=== PATIENT | female | born 1960 | race Caucasian/White ===

== ENCOUNTER 2017-01-14 14:39 | Inpatient (IN) | payer MEDICARE ==
[~2017-01-14] VITALS: Ht 170.1 cm; Wt 114.1 kg
--- NOTE | ~2017-01-14 | PR ---
[place], [place] PROGRESS NOTE NAME: NURYS BOYCE [facility] #: [id number] UNIT #: [id number] ROOM: 401 DOCTOR: EMMANUEL ARELLANO MD BIRTHDATE: [birth year] DOS: 01/19/2017 SUBJECTIVE: The patient is doing fine. She is much better with the steroids. She is able to move and walk now. Her joint pain, myalgias, and arthralgias have improved. OBJECTIVE: VITAL SIGNS: Graphic trend shows a pressure of 135/69, respirations 20, pulse is 72, temperature 97.4, T-max of 100.4 yesterday. LUNGS: Diminished breath sounds, clear. HEART: Regular. ABDOMEN: Obese, soft, nontender. EXTREMITIES: Without any edema. LABORATORY DATA: Mycoplasma pneumoniae has come back positive, but the IgM is less than 770. ASSESSMENT AND PLAN: 1. The patient with fever of unknown origin, most likely from an inflammatory process rather than infectious process. Blood cultures have come back negative. Mycoplasma pneumoniae is positive, we will discuss with Dr. Nicholson. 2. Because of the patient's continued fever and difficulty in diagnosing was transferred to [facility], unfortunately there were no beds and the patient is still there. 3. Benign hypertension, controlled. EMMANUEL ARELLANO MD CM:PNTRANS [id number] EMMANUEL ARELLANO MD 01/19/17 1044 interface
--- NOTE | ~2017-01-14 | PR ---
[place], [place] PROGRESS NOTE NAME: NURYS BOYCE UNIT #: [id number] ROOM: 401 DOCTOR: PAMELA UMANA MD BIRTHDATE: [birth year] DOS: 01/19/2017 SUBJECTIVE: She has noticed significant reduction and improvement in respiratory complaints. The patient has myalgia and the arthritis pain ____ with the use of the IV Solu-Medrol ____. She has been currently waiting for bed for transfer to [facility]. OBJECTIVE: VITAL SIGNS: Shows the temperature noted as 100.4 degrees Fahrenheit, normal temperature, respiratory rate 20, heart rate 64, blood pressure 141/77. Pulse oxygen saturation on room air 98% saturation recorded. HEENT: Chronic obesity. NECK: Supple. CARDIOVASCULAR SYSTEM: S1, S2 audible. LUNGS: For the patient was noted without any wheezing or crackles at the present time. ABDOMEN: Soft, nontender. LABORATORY DATA: The respiratory viral panel of the patient was noted negative. Procalcitonin level done on the 01/16/2017 was noted mildly elevated at 0.09. Mycoplasma IgM were noted negative, IgG was mildly elevated consistent with a previous old infection. The vancomycin trough level today was noted therapeutic 17.5. Anti-Marylou-1 antibodies were negative. IMPRESSION: The patient with rheumatic symptom for this patient, which has been noted with pulmonary nodule. The patient's infectious etiology and other etiologies of the patient currently has been considered and required further assessment. PLAN OF TREATMENT: Continue current plan and management as in progress. No other change in treatment at this time immediately will be necessary. Treatment changes will be ordered for this patient based on the progression of the illness. [place], [place] PROGRESS NOTE NAME: NURYS BOYCE UNIT #: [id number] ROOM: 401 DOCTOR: PAMELA UMANA MD BIRTHDATE: [birth year] PAMELA BYRNES MD CM:PNTRANS [id number] PAMELA JORGENSEN MD 01/20/17 0456 interface
--- NOTE | ~2017-01-14 | PR ---
[place], [place] PROGRESS NOTE NAME: NURYS BOYCE [facility] #: [id number] UNIT #: [id number] ROOM: 401 DOCTOR: FITZ JORGENSEN MD,PAMELA BIRTHDATE: [birth year] DOS: 01/18/2017 SUBJECTIVE: She has been complaining of weakness of the upper extremities and also pain in the left knee as well. The patient has x-rays of the left knee completed yesterday as well, which shows a small effusion the patient without any acute fracture. Venous Dopplers of the both lower extremities was also completed does not show any evidence of deep venous thrombosis. She has been noted fevers the patient again at midnight and yesterday afternoon after being afebrile for at least 24 hours. She was continued on the antibiotics. OBJECTIVE: VITAL SIGNS: Blood pressure 149/56-140/80, respirations 20-22, heart rate 95-80, temperature 101.5-98.3 degrees Fahrenheit. HEENT: Mild to moderate obesity. NECK: Supple. CARDIOVASCULAR SYSTEM: S1, S2 audible. LUNGS: Noted without any wheezing or crackles. ABDOMEN: Soft, nontender. Bowel sounds present. LABORATORY DATA: CPK of the patient that was done this morning was normal. The blood culture of the patient from the showed no bacterial growth. The vancomycin trough level was 10.5, which is in the low therapeutic range. X-ray of the left knee of the patient described as small effusion without a fracture. Ultrasound of the bilateral lower extremity does not show any evidence of acute deep venous thrombosis of the bilateral lower extremities. IMPRESSION: 1. The patient with the patient was noted with significant inflammatory burden for the patient in the body with abnormal finding on CT scan of the chest for the patient with tree-in-bud appearance 2. Chronic obesity. 3. Muscular weakness of the patient with unclear etiology, vasculitis. The patient has been considered being assessed with the pending lab results as well. PLAN OF TREATMENT: The patient will be recommended for transfer to tertiary care facility for further assessment and comprehensive workup. The patient ongoing medical problems to be diagnosed effectively and we treated accordingly. The possible transfer of patient to another facility was discussed with the patient and the spouse in detail. The case was also discussed with discharge planning and patient transferred with Dr. Danae Hoffmann and the case management services. The patient most likely will be transferred to one of the hospital at [facility] based on her insurance coverage today for further assessment. A thought was to start the patient on corticosteroid for the patient to reduce the inflammatory burden of the body for this patient that will be placed on hold. Since the patient would like to be assessed first to find out the problem prior to making any other empirical changes in the medical management. [place], [place] PROGRESS NOTE NAME: NURYS BOYCE UNIT #: [id number] ROOM: [facility] DOCTOR: PAMELA UMANA MD BIRTHDATE: [birth year] PAMELA BYRNES MD CM:PNTRANS [phone] PAMELA JORGENSEN MD 01/18/17 1256 interface
--- NOTE | ~2017-01-14 | CON ---
[place], [place] REPORT OF CONSULTATION NAME: NURYS BOYCE [facility] #: [id number] UNIT #: [id number] ROOM: 401 DOCTOR: FITZ JORGENSEN MDPAMELA BIRTHDATE: [birth year] DOS: 01/16/2017 PULMONARY CONSULTATION EVALUATION AND MANAGEMENT CONSULTATION REQUESTED BY: Dr. Danae Hoffmann. REASON FOR CONSULTATION: To assess the patient for any respiratory-related illness of the patient with recurrent febrile illness. HISTORY OF PRESENT ILLNESS: This is a 57-year-old female who has been unknown to me from the past. The patient developed symptoms of acute urinary tract infection of the patient a few weeks ago, which has been treated with antibiotic with ciprofloxacin by the primary care attending. She has been noted with symptoms of pain and aches in the body including in the joints and in the right shoulder. She was seen by her neurologist. She was also seen in the emergency room at [facility] previously and has been prescribed for this patient as prednisone treatment at that time. The patient was given prednisone 60 mg daily for 3 days. The patient stated that she was visiting grocery store where she passed out. She has been brought to the hospital for further assessment and has hospitalized in the beginning of 12/2016, the patient remained in the hospital from 12/31/2016 and discharged home for this patient on 01/04/2017. The patient stated that she has been assessed by the Cardiology Services. She has a workup done for the syncopal episode of the patient including carotids and others. She was seen by the Cardiology Services as well. The patient stated that she had been discharged home. She was not feeling well and still complaining of symptoms, which has described as fever with chills and not feeling well in general with malaise. The patient has been seen by the primary care physician and was given some adjustments in the medications as well. The patient presented to the emergency room for the patient on 01/14/2017. She has been noted with symptoms of flushed face with not feeling well and fever of 102 degrees Fahrenheit. The patient came into the hospital and has been readmitted to the hospital for further medical management at this time. She has felt only minimal improvement in the symptoms, currently getting intravenous antibiotics as well for febrile illness. The patient is still complaining of significant pain, which is described in the joints as well as some muscular pain as well. The pain was not limited just to the shoulder, described in the other body joints as well. She denies symptoms of acute shortness of breath. She does have mild nonproductive cough. She has been noted with some pain, which is described in the retrosternal area as well. The patient denies any symptoms of hemoptysis. Denies symptoms of active wheezing. She has not been known with any past diagnosis of pulmonary problems. REVIEW OF SYSTEMS: CONSTITUTIONAL: Fever and chills of the patient has been noted intermittently for the past 3 weeks for this patient. She denies any symptoms of abnormal weight loss history. EYES: Denies any burning, diplopia, dryness of the eye. CARDIOVASCULAR: Denies any anginal pain, palpitations, edema of the lower extremities at this time. GASTROINTESTINAL: The patient does have symptoms of some diarrhea with nausea, [place], [place] REPORT OF CONSULTATION NAME: NURYS BOYCE UNIT #: [id number] ROOM: [facility] DOCTOR: FITZ JORGENSEN MDPAMELA BIRTHDATE: [birth year] vomiting without any specific abdominal pain. Denies symptoms of hematemesis, melena, or hematochezia. GENITOURINARY: Denies dysuria, suprapubic pain, hematuria. SKIN: Denies any lesions or rashes. CENTRAL NERVOUS SYSTEM: Denies dizziness, headache, diplopia, chronic headaches or seizures. Remaining systems were reviewed with the patient, they were noted all negative. PAST MEDICAL HISTORY: The patient has been reported as history of: 1. Essential hypertension. 2. General anxiety disorder. 3. Past history of TIA. 4. CVA with mild right-sided weakness. 5. Hypercholesterolemia as well. 6. History of hypothyroidism. 7. History of severe obesity. The patient is now stated with BMI of 39. PAST SURGICAL HISTORY: Reported as: 1. D and C. 2. Right knee arthroscopy. 3. Left ankle plate. 4. Endometrial ablation. FAMILY HISTORY: The patient's father living, 89 years old with history of colon cancer. The mother at age 5959 years old from acute myocardial infarction. One of the sister for this patient has been known with history of sarcoidosis, requiring bilateral lung transplant. One of the brother also known with history of sarcoidosis as well. HOME MEDICATIONS: The patient was listed at this time of admission in the medication reconciliation, reported by the nursing staff for the patient on 01/14/2017, for the patient was noted as use of: 1. Xanax 0.25 mg p.o. t.i.d. 2. Enalapril 10 mg daily. 3. Vitamin D 50,000 international units every Tuesday. 4. Levothyroxine 50 mcg daily. 5. Coumadin 3 mg for this patient alternating with 4 mg daily. 6. Lovastatin 10 mg daily. DRUG ALLERGIES: Noted allergies: 1. PENICILLIN. 2. Z-MYRTLE. PHYSICAL EXAMINATION: GENERAL: A 57-year-old female, who has been currently noted to be awake and alert at this time without any distress, sitting on the chair comfortably. VITAL SIGNS: Height of 5 feet 7 inches, weight of 251 pounds, BMI of 39.4. Vital signs of the patient which has been recorded shows temperature noted highest T-max of 102.2 degree Fahrenheit, later noted gradual reduction in [place], [place] REPORT OF CONSULTATION NAME: NURYS BOYCE UNIT #: [id number] ROOM: [facility] DOCTOR: FITZ JORGENSEN MD,[facility] BIRTHDATE: [birth year] temperature curve was noted this morning temperature was recorded as 100.7 degrees Fahrenheit at 8 o'clock and at noon 99.8. The respiratory rate range between 18-16, heart rate 77-95, blood pressure 144/69 for the patient 156/62. Intake for the patient is 3600 mL, output 1625 mL. Pulse oxygen on room air was 95% to 100% saturation recorded. HEENT: Examination shows head was atraumatic. Eyes nonicterus. NECK: Supple. Oral mucosa moist. CARDIOVASCULAR: S1, S2 audible. LUNGS: The patient was noted without any wheezing or crackles. Lungs were noted clear to be auscultation bilaterally. ABDOMEN: Soft and obese. EXTREMITIES: Shows no edema, clubbing, cyanosis. Visible joints for the patient does not show any acute deformities. SKIN: Showed no lesions or rashes. CENTRAL NERVOUS SYSTEM: Cranial nerves 2-12 intact without any gross focal neurologic deficit. LABORATORY DATA: CBC of the patient on 01/14/2017, was noted as a normal CBC. PT/INR for the patient was noted 1.7 on 01/14/2017. PTT was normal. The CMP of the patient on 01/14/2017, was noted as BUN and creatinine was normal. Sodium 133. The CMP was normal. CK-MB and troponin for the patient's first set was negative. Urinalysis of the patient noted 1+ leukocyte esterase that was done on . The influenza A and B nasal washing antigens were noted negative. CBC for the patient on 01/15/2017, shows WBC count 6.2, hemoglobin 11.5, hematocrit 35.9 with platelet count normal. BMP of the patient was noted as 01/15/2017, BUN and creatinine of the patient remains normal. Stool for C. diff toxin patient were noted as negative. ESR was noted 20. Urine culture, which were done from the emergency room of the patient so far showed no bacterial growth. Final culture results pending. CBC this morning was noted as normal. The INR of the patient noted today at 1.8. The BMP of the patient this morning was noted as normal. The blood culture of the patient 01/14, two sets shows no bacterial growth as well. The review of CRP for this patient noted elevated at 8.14. One-view chest x-ray of the patient that was done on this admission shows there was no obvious lymphadenopathy noted in mediastinum, no pulmonary infiltration of the patient was noted except mild blunting of the right costophrenic angle, small pleural fluid cannot be excluded with 1 view. IMPRESSION: The patient who has been currently admitted to the hospital noted with fever and chills, which is described for this patient, so far none of the testing of the patient was noted consistent with acute infectious etiology, which has been usually seen. Multisystem involvement for the patient noted myalgia, diarrhea, some nonproductive cough and other for the patient with a differential diagnosis would be considered for connective tissue disorder. Certainly the sarcoidosis does not present with current acute febrile illness normally, there were no signs of skin manifestation or other symptoms related to sarcoidosis with past family history known for sarcoidosis. Viral syndrome to be considered in the differential diagnosis for the patient as well. PT and INR had been responded to the treatment previously. Influenza A and B, nasal washing antigens were noted negative; however, other viral etiology would be assessed for this patient with further assessment. Await for CT scan of the [place], [place] REPORT OF CONSULTATION NAME: NURYS BOYCE UNIT #: [id number] ROOM: 401 DOCTOR: FITZ JORGENSEN MD,PAMELA BIRTHDATE: [birth year] chest, abdomen and pelvis of the patient for further assessment as well. Sometime this finding could be seen in lymphoma. Symptomatic management including empiric use of the antibiotic for the patient to be continued. Further changes and additional intervention will be ordered for this patient based on the further available data for this patient on this admission. The lab testing will be ordered for the patient for the usual connective tissue disorder including rheumatoid arthritis, vasculitis as well as chronic fungal infection with the lab testing. Rheumatic fever for the patient could also manifest that, but with a normal ESR for this patient and other etiology is not noted highly suggestive of that. Other supportive therapy, plan of management at this time to be continued. Usual care, other supportive care and treatment plan of management. Usual medical management, other therapies. Thanks for allowing me to participate in the care of this patient. PAMELA BYRNES MD CM:CONSTR:REPORT OF CONSULTATION 1315 01/17/17 0208 interface
--- NOTE | ~2017-01-14 | PR ---
[place], [place] PROGRESS NOTE NAME: NURYS BOYCE [facility] #: [id number] UNIT #: [id number] ROOM: 401 DOCTOR: EMMANUEL ARELLANO MD BIRTHDATE: [birth year] DOS: 01/16/2017 SUBJECTIVE: The patient is doing fine without any complaints this morning, but she is continuing to spike a fever. The pain in her joints is better with the Voltaren gel. OBJECTIVE: VITAL SIGNS: Blood pressure is 146/70, pulse of 84, respirations 20 and temperature 100.7 and T-max of 101.6. LUNGS: Diminished breath sounds. No wheezes heard. HEART: Regular. ABDOMEN: Obese, soft. EXTREMITIES: Without any edema. LABORATORY EVALUATION: ESR is 20 and CRP is 8.14. Clostridium difficile toxin 1 set is negative. ASSESSMENT AND PLAN: 1. Fever of unknown etiology: It could be a viral syndrome. Flu titer was negative, but we will need to rule out other source of infection. Urine culture so far has come back negative. ESR is normal, ruling out inflammatory joint disease. The CRP is mildly elevated. CT scan of the chest and abdomen will be performed today and a consultation with Dr. Nicholson is obtained. So far, the blood cultures are not back yet. 2. Benign hypertension: Pressures are much better controlled with medications. 3. History of cerebrovascular accident, on Coumadin. Protime as well as routine labs to be ordered. EMMANUEL ARELLANO MD CM:PNTRANS 0825 1604 EMMANUEL ARELLANO MD 01/16/17 1605 interface
--- NOTE | ~2017-01-14 | WRIGHTHP ---
[place], [place] PATIENT HISTORY AND PHYSICAL EXAM NAME: NURYS BOYCE [facility] #: [id number] UNIT #: [id number] ROOM: 401 DOCTOR: EMMANUEL ARELLANO MD BIRTHDATE: [birth year] DOS: 01/15/2017 HISTORY OF PRESENT ILLNESS: The patient is 57 years old, very well known to us, comes in with complaint of jaw pain, shoulder pain, nausea and diarrhea. As soon as she arrived to the hospital, she also started having a high-grade temperature of 102. She denies having any chest pains, any retrosternal pain or any abdominal pain. PAST MEDICAL HISTORY: Significant for: 1. Recent hospitalization for dizziness. 2. Benign hypertension. 3. 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 4. Mixed hyperlipidemia. 5. History of a CVA, on Coumadin, followed by as an outpatient. 6. Osteoarthritis of the right shoulder. MEDICATIONS: That she is on are Xanax 0.25 t.i.d. p.r.n., enalapril 10 daily, vitamin D 50,000 once a week, levothyroxine 0.04 mg daily, lovastatin 10 daily, Coumadin 3 mg for 2 days and 4 mg on the third day. SOCIAL HISTORY: Nonsmoker and does not use any alcohol. PHYSICAL EXAMINATION: GENERAL: She is awake and alert and oriented. She does not feel very good. VITAL SIGNS: Her temperature spiked to 102.2 yesterday during the night, pulse of 126, respirations 20 and blood pressure 130/64. LUNGS: Diminished breath sounds. No wheezes, rales or rhonchi heard. HEART: Regular. ABDOMEN: Obese, soft. EXTREMITIES: Without any edema. Minimal synovitis noticed since her knee joint . ASSESSMENT AND PLAN: 1. This is a patient, who presents with emesis, diarrhea and fever. She is tachypneic, tachycardic and febrile. Meets sepsis criteria, which she is admitted for intravenous fluids. Blood cultures and urine cultures have been ordered and they are pending. Intravenous antibiotics and intravenous fluids have been started. 2. Possible inflammatory joint disease recently: When she was admitted last month, patient had a rheumatoid factor and anti-DNA which were both negative. ESR and CRP are ordered to make sure she does not have PMR. 3. Benign hypertension. Blood pressure is fairly controlled. She is slightly tachycardic. I will add a low dose of Coreg for better control of her heart rate and her blood pressure. 4. History of cerebrovascular accident, on Coumadin. Coumadin to be continued. [place], [place] PATIENT HISTORY AND PHYSICAL EXAM NAME: NURYS BOYCE UNIT #: [id number] ROOM: [facility] DOCTOR: EMMANUEL ARELLANO MD BIRTHDATE: [birth year] EMMANUEL ARELLANO MD CM:HISPHYS:PATIENT HISTORY AND PHYSICAL EXAMINATION 1015 1040 EMMANUEL ARELLANO MD 01/15/17 1040 interface
--- NOTE | ~2017-01-14 | CON ---
[place], [place] REPORT OF CONSULTATION NAME: NURYS OBYCE UNIT #: [id number] ROOM: 401 DOCTOR: EAN ROLLE MD BIRTHDATE: [birth year] DOS: HISTORY OF PRESENT ILLNESS: A 57-year-old patient who presented with complaint of myalgia, diarrhea, nausea, vomiting, symptomatology of gastroenteritis. The patient's C. difficile negative. Sedimentation rate negative. C-reactive protein 8.1. Urine culture has no bacteria. H flu A and B negative. CBC differential, H and H 11 and 35. PAST MEDICAL HISTORY: Hypertension, degenerative joint disease, hypercholesterolemia, CVAs, TIAs, anxiety. ALLERGIES: PENICILLIN AND Z-MYRTLE. REVIEW OF SYSTEMS: No hematemesis, no hematochezia, no shortness of breath. No chest pain today. Continues some myalgia still. Diarrhea has subsided somewhat. PHYSICAL EXAMINATION: VITAL SIGNS: Stable. HEENT: Within normal limits. NECK: Supple, no thyromegaly. CHEST: Symmetric anatomy, equal expansion. No wheeze. No rhonchi. HEART: Normal sinus rhythm, no gallop, no murmur. ABDOMEN: Soft. No hepato-organomegaly. Bowel sounds present. No pulsatile mass. EXTREMITIES: No cyanosis, no pedal edema. NEUROLOGIC: Alert, oriented to time, place, person. IMPRESSION: Viral gastroenteritis, myalgia. C. difficile negative. Urine culture is negative. PLAN AND DISCUSSION: Supportive management, IV hydration, and clinical reassessment. Thank you very much indeed. EAN ROLLE MD CM:CONSTR:REPORT OF CONSULTATION 1720 01/16/17 0059 interface
--- NOTE | ~2017-01-14 | PR ---
[place], [place] PROGRESS NOTE NAME: NURYS BOYCE [facility] #: [id number] UNIT #: [id number] ROOM: 401 DOCTOR: FITZ JORGENSEN MD,PAMELA BIRTHDATE: [birth year] DOS: 01/17/2017 SUBJECTIVE: She has been noted reduction of the fever which seems to be resolved in the last 12 hours. The body ache for the patient was also noted decreased. The diarrhea was also decreasing. Denies symptoms of chest pain or any abdominal pain. She has a CT scan of the abdomen and pelvis completed yesterday. OBJECTIVE: VITAL SIGNS: The temperature of the patient noted as low grade to normal temperature in the last 12 hours as the temperature of 99.4 degrees Fahrenheit to normal temperature, respiratory rate 18-20, heart rate of 86-102, blood pressure 144/66-140/68. Intake is 4.950 L, output 4200 mL. Pulse oxygen saturation on room air was 98% saturation. HEENT: Examination shows no acute change. NECK: Supple. Head was atraumatic. CARDIOVASCULAR: S1, S2 audible. LUNGS: Without any wheeze or crackles at the present time. ABDOMEN: Soft, nontender. LABORATORY DATA: Ultrasound of the lower extremity for the patient that was completed this morning does not show any evidence of deep venous thrombosis. Urine culture, no bacterial growth from admission. BMP this morning, BUN of 6, creatinine was normal, glucose 108. CBC of the patient this morning, WBC count 4.5, hemoglobin 10.2, hematocrit 32.0, platelet count was normal. PT/INR was 1.8. Amylase and lipase for the patient noted as negative. CT scan of the abdomen and pelvis, which was done for this patient without contrast of the patient, CT scan of the chest for the patient does not show any significant lymphadenopathy in the mediastinum; however, the finding will be noted of a suboptimal assessment because of lack of IV contrast. Areas of ground glass for the patient opacity for the patient for nodular infiltration noted in the different portions of the lungs, close to the subpleural distribution. CT scan of the abdomen findings were described as possibility of duodenitis for this patient as well as some mesenteric lymphadenopathy for this patient. The possibility of reactive in nature for the patient was also described. Possibility of pancreatitis for the patient was also described for this patient, which is a nonspecific finding. Followup for the patient was suggested with current lymph node enlargement in the abdomen. IMPRESSION: 1. The patient who has been currently admitted to the hospital, still noted multisystemic involvement with diarrhea, some nonspecific lymphadenopathy in the abdomen, evidence of tree in bud appearance and nodular density in the lungs for the patient consistent with acute infectious etiology. 2. History of sarcoidosis in the sister and brother was also known. At least there was no evidence of acute manifestation of sarcoidosis noted at the present time with the current presentation. 3. The patient has moderate obesity. 4. History of type 2 diabetes mellitus. 5. Questionable pancreatitis. [place], [place] PROGRESS NOTE NAME: NURYS BOYCE UNIT #: [id number] ROOM: 401 DOCTOR: FITZ JORGENSEN MD,PAMELA BIRTHDATE: [birth year] 6. Duodenitis. PLAN OF TREATMENT: Urine for legionella antigen was ordered. In addition, the patient will be continued to have other process for this patient of assessment, starting with the labs for this patient. Once available, will be reviewed. Continue current antibiotic regimen of the patient. The patient noted afebrile and clinically better. Supportive therapy, plan of management and other care. Usual medical management. Continue the Gastroenterology followup of the patient for current abnormal findings on the CT scan of the abdomen. Assessment and management has been discussed with Dr. Danae Hoffmann as well. PAMELA BYRNES MD CM:PNTRANS [id number] PAMELA JORGENSEN MD 01/17/17 1153 interface
--- NOTE | ~2017-01-14 | CON ---
[place], [place] REPORT OF CONSULTATION [id number] UNIT #: [id number] ROOM: 401 DOCTOR: DORCAS ROLLE MDFORT WAYNEJONAH BIRTHDATE: [birth year] DOS: HISTORY OF PRESENT ILLNESS: A 56-year-old patient who has presented with chief complaint of multiple bowel movements abdominal cramp today, sensation of chills and rigor as well as myalgia and some sensation of nausea today. All started this morning and she had to be admitted for definitive assessment. Lactic acid was 1.5. White blood cell was 7, H and H of 13 and 43, differential within normal limits. INR 1.7. Comprehensive metabolic panel, electrolyte balanced. Lipase 86. C-reactive protein 2.6. Chest x-ray, no active disease. Urinalysis normal. Rapid flu A and B was negative. PAST MEDICAL HISTORY: Obesity, hypertension, hypercholesterolemia, TIAs, CVAs, anxiety, degenerative joint disease, and vitamin D deficiency. ALLERGIES: PENICILLIN, Z-MYRTLE. SOCIAL HISTORY: Nonsmoker, nonalcohol consumer. FAMILY HISTORY: Colonic carcinoma in father. PAST SURGICAL HISTORY: Right knee arthroscopy, right breast benign cystectomy, minor surgeries, otherwise. MEDICATIONS: List has been reviewed. REVIEW OF SYSTEMS: HEENT: Denies double vision, blurred vision. RESPIRATORY: Denies acute shortness of breath. CARDIOVASCULAR: Denies chest pain. DIGESTIVE SYSTEM: Nausea, vomiting, diarrhea, today 5 bowel movements. PHYSICAL EXAMINATION: VITAL SIGNS: Stable, nontoxic. The patient appears to be cold and chilly. HEENT: Head normocephalic, nontraumatic. Mouth and buccal mucosa benign. NECK: Supple, no thyromegaly. CHEST: Symmetric anatomy, equal expansion. No wheeze, no rhonchi. HEART: Normal sinus rhythm, no gallop, no murmur. ABDOMEN: Soft. No hepato-organomegaly. Bowel sounds present, obese. No pulsatile mass. EXTREMITIES: No cyanosis, no pedal edema. NEUROLOGIC: Alert, oriented to time, place, person. IMPRESSION: Viral gastroenteritis, hypertension, hypercholesterolemia, old history of cerebrovascular accident and transient ischemic attack, history of anxiety, history of vitamin D deficiency, history of degenerative joint disease on the right shoulder and right elbow area. PLAN AND DISCUSSION: IV hydration, observation, soft diet, supportive management hopefully by tomorrow viral gastroenteritis issue has settled and otherwise reassessment. Labs reviewed, records reviewed, data reviewed. [place], [place] REPORT OF CONSULTATION NAME: NURYS BOYCE UNIT #: [id number] ROOM: [facility] DOCTOR: AQUILINO VARGAS,EAN BIRTHDATE: [birth year] Thank you very much indeed. Sincerely yours, EAN ROLLE MD CM:CONSTR:REPORT OF CONSULTATION 52 01/15/17 0213 interface
--- NOTE | ~2017-01-14 | PR ---
[place], [place] PROGRESS NOTE [id number] UNIT #: [id number] ROOM: 401 DOCTOR: EMMANUEL ARELLANO MD BIRTHDATE: [birth year] DOS: 01/18/2017 SUBJECTIVE: The patient continues to have fevers, which seems to resolve then it came back in the T-max of 101.5. Denies having any chest pains or palpitations but has a lot of upper arm discomfort and has a hard time walking. She also has a hard time lifting her arms up. She denies having any chest pains or palpitations. OBJECTIVE: VITAL SIGNS: Graphic trend shows that she is afebrile. Blood pressures 140/80, pulse of 76, respirations 22, temperature 98.2. LUNGS: Diminished breath sounds. No wheezes heard. HEART: Regular. ABDOMEN: Obese. EXTREMITIES: Without any edema and some noticed on the left knee. ASSESSMENT AND PLAN: Fever of unknown origin. So far infections being ruled out for the possibilities that the patient has some inflammatory disease and joint disease, which is causing multiorgan involvement. She also does have a family history of sarcoidosis in 2 of her siblings, so she is high risk for developing an autoimmune disease. Discussed with Dr. Nicholson, we will start her on IV Solu-Medrol. CPKs will be ordered to rule out myositis. Also discussed with him a possible transfer to [facility] which will be arranged once the CK is available. EMMANUEL ARELLANO MD CM:PNTRANS [id number] EMMANUEL ARELLANO MD 01/18/17 1032 interface
--- NOTE | ~2017-01-14 | PR ---
[place], [place] PROGRESS NOTE NAME: NURYS BOYCE [facility] #: [id number] UNIT #: [id number] ROOM: 401 DOCTOR: EMMANUEL ARELLANO MD BIRTHDATE: [birth year] DOS: SUBJECTIVE: The patient is doing much better this morning. She has less febrile episodes since yesterday's T-max of 101 at 1600 hours. PHYSICAL EXAMINATION: VITAL SIGNS: Blood pressure is 140/ , pulse of 86, respirations 20, temperature 97.9. LUNGS: Diminished breath sounds, clear. HEART: Regular. ABDOMEN: Obese, soft. EXTREMITIES: Without any edema. ASSESSMENT AND PLAN: 1. The patient with fever. CT of the chest did show inflammatory disease with hilar lymph nodes also ground glass opacity with peribronchial vascular changes, and pattern suggestive of bronchiolitis. Peripancreatic fat stranding also was noticed, but amylase and lipase has been negative. I discussed with Dr. Nicholson, the patient's antibiotic adjustments were made and she feels a lot better and fevers have seems to be slowly coming down. 2. Benign hypertension, controlled. 3. Possible pancreatitis, but amylase and lipase are normal, so I doubt the patient has pancreatitis. 4. Diarrhea. Clostridium difficile titers have been negative, but because the patient was continued to be symptomatic along with fever Flagyl was added, I will continue for now. So far the inflammatory joint disease workup has been negative. She does have quite a lot of inflammation of the left knee joint. I will go ahead and arrange for a venous Doppler of the left leg and an x-ray of the left knee. EMMANUEL ARELLANO MD CM:PNTRANS [id number] EMMANUEL ARELLANO MD 01/17/17 1036 interface
--- NOTE | ~2017-01-14 | DS ---
[place], [place] DISCHARGE SUMMARY NAME: NURYS BOYCE [facility] #: [id number] UNIT #: [id number] ROOM: 401 DOCTOR: EMMANUEL ARELLANO MD BIRTHDATE: [birth year] DOS: 01/19/2017 DIAGNOSES: 1. Fever of unknown origin. 2. Benign hypertension. 3. CT scan of the chest showing ground glass opacities with tree-in-bud pattern suggestive of small airway inflammation. 4. Minimal peripancreatic fat stranding with normal amylase and lipase. 5. Synovitis of the knee joint with small synovial effusion. 6. Diffuse arthralgias and myalgias, autoimmune workup, pending rheumatoid factor and DNA and aldolase, CPKs so far come back negative. 7. Diarrhea with negative Clostridium difficile titers. 8. Mycoplasma pneumoniae, positive in the plasma, IgG is 171, IgM less than 770. 9. History of cerebrovascular accident on chronic long-term use of anticoagulants. HOSPITAL COURSE: This patient is 57 years old, very well known to us, comes into the Emergency Room with complaints of feeling poorly, nausea, diarrhea, jaw pain and shoulder pain. As soon as she arrived at the hospital, she started having a temperature going up into the 102s range. The patient was pancultured was placed on IV fluids, broad spectrum antibiotics. The consultation with Dr. Nicholson was obtained as well as Dr. Rincon. A CT scan of the abdomen and pelvis and a CT of the chest were ordered. CT of the abdomen and pelvis shows small amount of pancreatitis and pancreatic fat stranding around the tail of pancreas, amylase and lipase were done, which were both normal and Dr. Rincon feels that this is not a resource of her fevers. The CT scan of the chest was done, which showed the above-mentioned findings, the patient was already on multiple antibiotics. Dr. Nicholson did further workup to rule out atypical pneumonia as well as autoimmune disease. The patient continued to complain of more arthralgias and myalgias and the patient seems to have a hard time even getting out of bed. IV steroids were added. The fever has come down. The patient starting to feel a little bit better, but we do not know the exact source of infection so far all the cultures have come back negative. She does have a history of benign hypertension it is controlled on the current dose of medicines and she is also on long-term use of anticoagulants with fairly therapeutic protimes. We decided to transfer the patient to [facility] since we do not have a clear cut idea about why the patient has continuing to spike a fever and [facility] is accepted the patient and the transfer will be arranged today. She was supposed to go yesterday, but they did not have any beds at [facility], hopefully, they will have one today. DISCHARGE MEDICATIONS: She is currently on IV vancomycin, Rocephin and Flagyl and her rest of medications was Xanax 0.25 t.i.d. p.r.n., lovastatin 10 daily, levothyroxine 0.05 mg daily, Coumadin 3 mg daily, Enalapril 10 daily and Coreg 3.125 twice daily. [place], [place] DISCHARGE SUMMARY [facility]: [id number] #: [id number] [facility] DOCTOR: EMMANUEL ARELLANO MD BIRTHDATE: [birth year] EMMANUEL ARELLANO MD CM:DISCHARG [phone] EMMANUEL ARELLANO MD 01/19/17 1111 interface
[~2017-01-14 14:39] MED LIST: ANTIVERT25 MG PO; COUMADIN3 M1 PO; COUMADIN4 M1 PO; Coumadin3 MG PO; ENALAPRIL MALEA10 MG PO; ENALAPRIL10 MG PO; LEVOTHYROXINE0.05 M1 PO; LOVASTATIN10 MG PO; VERAPAMIL240 MG PO; VITAMIN D50000 I3 PO; XANAX0.25 MG PO
[2017-01-14 14:44] VITALS: BP 144/90
[2017-01-14 15:21] LABS: BASO # 0.1 10*3/uL (0.0-0.1); BASO % 0.7 % (0.0-1.0); EOS # 0.1 10*3/uL (0.0-0.4); EOS % 0.9 % (1.0-4.0); HEMATOCRIT 42.9 % (37.0-47.0); HEMOGLOBIN 13.8 g/dl (12.0-16.0); LYMPH # 1.1 10*3/uL (1.3-4.4); LYMPH % 13.9 % (27.0-41.0); MEAN CELL VOLUME 83.8 fl (81.0-99.0); MEAN CORPUSCULAR HGB CONC 32.2 g/dl (33.0-37.0); MEAN PLATELET VOLUME 8.9 fl (9.6-12.3); MONO # 0.3 10*3/uL (0.1-1.0); MONO % 3.4 % (3.0-9.0); NEUT # 6.2 10*3/uL (2.3-7.9); NEUT % 80.7 % (47.0-73.0); PLATELET COUNT AUTOMATED 173 10*3/uL (130-400); RED BLOOD COUNT 5.12 10*6/uL (4.10-5.10); RED CELL DISTRI WIDTH 14.3 % (0-14.5); WHITE BLOOD COUNT 7.7 10*3/uL (4.8-10.8)
[2017-01-14 15:33] LABS: INTERNATIONAL NORM RATIO 1.7 (2.0-3.5); PROTHROMBIN TIME 18.4 SECONDS (9.0-12.4)
[2017-01-14 15:37] LABS: ALBUMIN 3.8 gm/dl (3.1-4.5); ALKALINE PHOSPHATASE 86 U/L (45-117); BILIRUBIN, TOTAL 0.8 mg/dl (0.2-1.0); BUN 12 mg/dl (7-24); C-REACTIVE PROTEIN 2.08 MG/DL (0-0.3); CARBON DIOXIDE 26 mmol/L (21-32); CHLORIDE 98 mmol/L (98-107); CPK 36 U/L (26-192); EST GLOM FILT AFRICAN AMERICAN > 60 ml/min; GLUCOSE 111 mg/dL (65-99); MAGNESIUM 1.9 mg/dL (1.5-2.1); POTASSIUM 4.1 mmol/L (3.5-5.1); SGOT/AST 21 IU/L (3-35); SGPT/ALT 40 U/L (12-78); SODIUM 133 mmol/L (136-145); TOTAL PROTEIN 7.5 gm/dL (6.4-8.2)
[2017-01-14 15:43] LABS: CKMB < 0.5 ng/ml (0.5-3.6); TROPONIN I < 0.015 ng/ml (<0.045)
[2017-01-14 15:53] LABS: BILIRUBIN NEGATIVE (NEGATIVE); BLOOD NEGATIVE (NEGATIVE); CLARITY CLOUDY (CLEAR); COLOR YELLOW (YELLOW); GLUCOSE NEGATIVE (NEGATIVE); KETONE TRACE (NEGATIVE); LEUKO ESTERASE 1+ (NEGATIVE); NITRITE NEGATIVE (NEGATIVE); PROTEIN TRACE (NEGATIVE); SPECIFIC GRAVITY >= 1.030 (1.005-1.030); UROBILINOGEN 0.2 E.U./dl (0.2-1.0)
[2017-01-14 16:15] LABS: URINE REFLEX COMMENT YES (NO)
[2017-01-14 17:00] VITALS: BP 140/78
[2017-01-14 17:55] VITALS: BP 140/78
[2017-01-14 20:00] VITALS: BP 135/70
[2017-01-14 21:44] LABS: BILIRUBIN NEGATIVE (NEGATIVE); BLOOD NEGATIVE (NEGATIVE); CLARITY SL CLOUDY (CLEAR); COLOR YELLOW (YELLOW); GLUCOSE NEGATIVE (NEGATIVE); KETONE NEGATIVE (NEGATIVE); LEUKO ESTERASE 1+ (NEGATIVE); NITRITE NEGATIVE (NEGATIVE); PROTEIN NEGATIVE (NEGATIVE); UROBILINOGEN 0.2 E.U./dl (0.2-1.0)
[2017-01-14 21:52] LABS: MUCOUS TRACE; URINE REFLEX COMMENT YES (NO)
[2017-01-15] VITALS: BP 130/64
[2017-01-15 04:10] VITALS: BP 152/74
[2017-01-15 07:23] LABS: BASO # 0.1 10*3/uL (0.0-0.1); BASO % 0.8 % (0.0-1.0); EOS # 0.1 10*3/uL (0.0-0.4); EOS % 1.3 % (1.0-4.0); LYMPH # 1.3 10*3/uL (1.3-4.4); LYMPH % 20.6 % (27.0-41.0); MEAN CELL VOLUME 83.9 fl (81.0-99.0); MEAN CORPUSCULAR HGB 26.9 pg (27.0-31.0); MEAN PLATELET VOLUME 9.3 fl (9.6-12.3); MONO # 0.3 10*3/uL (0.1-1.0); MONO % 4.9 % (3.0-9.0); NEUT # 4.4 10*3/uL (2.3-7.9); NEUT % 72.1 % (47.0-73.0); PLATELET COUNT AUTOMATED 140 10*3/uL (130-400); RED BLOOD COUNT 4.28 10*6/uL (4.10-5.10); RED CELL DISTRI WIDTH 14.4 % (0-14.5); WHITE BLOOD COUNT 6.2 10*3/uL (4.8-10.8)
[2017-01-15 07:24] LABS: HEMATOCRIT 35.9 % (37.0-47.0); HEMOGLOBIN 11.5 g/dl (12.0-16.0)
[2017-01-15 07:45] LABS: BUN 9 mg/dl (7-24); CARBON DIOXIDE 24 mmol/L (21-32); CHLORIDE 103 mmol/L (98-107); EST GLOM FILT AFRICAN AMERICAN > 60 ml/min; GLUCOSE 111 mg/dL (65-99); POTASSIUM 3.9 mmol/L (3.5-5.1); SODIUM 137 mmol/L (136-145)
[2017-01-15 08:00] VITALS: BP 126/78
[2017-01-15 12:00] VITALS: BP 156/62
[2017-01-15 16:00] VITALS: BP 120/62
[2017-01-15 20:00] VITALS: BP 146/56
[2017-01-16] VITALS: BP 138/65
[2017-01-16 08:00] VITALS: BP 146/70
[2017-01-16 08:59] LABS: BASO % 0.7 % (0.0-1.0); EOS # 0.2 10*3/uL (0.0-0.4); EOS % 2.9 % (1.0-4.0); HEMATOCRIT 34.1 % (37.0-47.0); HEMOGLOBIN 11.1 g/dl (12.0-16.0); MEAN CORPUSCULAR HGB CONC 32.6 g/dl (33.0-37.0); MONO # 0.3 10*3/uL (0.1-1.0); MONO % 5.5 % (3.0-9.0); NEUT # 4.1 10*3/uL (2.3-7.9); NEUT % 72.5 % (47.0-73.0); PLATELET COUNT AUTOMATED 122 10*3/uL (130-400); RED BLOOD COUNT 4.11 10*6/uL (4.10-5.10); RED CELL DISTRI WIDTH 14.4 % (0-14.5); WHITE BLOOD COUNT 5.6 10*3/uL (4.8-10.8)
[2017-01-16 09:13] LABS: BUN 7 mg/dl (7-24); CARBON DIOXIDE 22 mmol/L (21-32); CHLORIDE 102 mmol/L (98-107); EST GLOM FILT AFRICAN AMERICAN > 60 ml/min; GLUCOSE 109 mg/dL (65-99); INTERNATIONAL NORM RATIO 1.8 (2.0-3.5); POTASSIUM 3.6 mmol/L (3.5-5.1); PROTHROMBIN TIME 20.3 SECONDS (9.0-12.4); SODIUM 136 mmol/L (136-145)
[2017-01-16 12:00] VITALS: BP 144/69
[2017-01-16 16:00] VITALS: BP 149/77
[2017-01-16 20:00] VITALS: BP 139/71
[2017-01-17] VITALS: BP 144/66
[2017-01-17 06:15] LABS: BASO % 0.7 % (0.0-1.0); EOS # 0.1 10*3/uL (0.0-0.4); EOS % 3.1 % (1.0-4.0); HEMOGLOBIN 10.2 g/dl (12.0-16.0); MEAN CELL VOLUME 83.3 fl (81.0-99.0); MEAN CORPUSCULAR HGB 26.6 pg (27.0-31.0); MEAN CORPUSCULAR HGB CONC 31.9 g/dl (33.0-37.0); MEAN PLATELET VOLUME 9.8 fl (9.6-12.3); MONO # 0.3 10*3/uL (0.1-1.0); MONO % 6.4 % (3.0-9.0); NEUT # 3.1 10*3/uL (2.3-7.9); NEUT % 67.4 % (47.0-73.0); PLATELET COUNT AUTOMATED 118 10*3/uL (130-400); RED BLOOD COUNT 3.84 10*6/uL (4.10-5.10); RED CELL DISTRI WIDTH 14.3 % (0-14.5); WHITE BLOOD COUNT 4.5 10*3/uL (4.8-10.8)
[2017-01-17 06:19] LABS: INTERNATIONAL NORM RATIO 1.8 (2.0-3.5); PROTHROMBIN TIME 19.6 SECONDS (9.0-12.4)
[2017-01-17 06:34] LABS: BUN 6 mg/dl (7-24); CARBON DIOXIDE 26 mmol/L (21-32); CHLORIDE 104 mmol/L (98-107); EST GLOM FILT AFRICAN AMERICAN > 60 ml/min; GLUCOSE 108 mg/dL (65-99); POTASSIUM 3.8 mmol/L (3.5-5.1); SODIUM 138 mmol/L (136-145)
[2017-01-17 08:00] VITALS: BP 140/68
[2017-01-17 12:00] VITALS: BP 143/66
[2017-01-17 16:00] VITALS: BP 150/65
[2017-01-17 20:00] VITALS: BP 135/55
[2017-01-18] VITALS: BP 149/56
[2017-01-18 04:00] VITALS: BP 140/80
[2017-01-18 06:10] LABS: IMMUNOGLOBULIN IgE 002170 18 IU/mL (0-100)
[2017-01-18 07:12] LABS: RHEUMATOID ARTHRITIS FACTOR 13.4 IU/mL (0.0-13.9)
[2017-01-18 08:00] VITALS: BP 153/62
[2017-01-18 12:00] VITALS: BP 158/64
[2017-01-18 15:07] LABS: ANGIOTENSIN-CONVERTING ENZYME 14 U/L (14-82)
[2017-01-18 16:00] VITALS: BP 149/70
[2017-01-18 19:58] VITALS: BP 160/68
[2017-01-19] VITALS: BP 135/69
[2017-01-19 01:07] LABS: IGG SUBCLASS 1 485 mg/dL (422-1292); IGG SUBCLASS 2 205 mg/dL (117-747); IGG SUBCLASS 3 55 mg/dL (41-129); IGG SUBCLASS 4 2 mg/dL (1-291)
[2017-01-19 02:09] LABS: INFLUENZA B Negative (Negative); METAPNEUMOVIRUS Negative (Negative)
[2017-01-19 08:00] VITALS: BP 141/77
[2017-01-19 12:00] VITALS: BP 147/62
[2017-01-19 16:00] VITALS: BP 153/66
== END 2017-01-19 17:19 | disposition short-term general hospital (02) | DRG 193 ==
LOC: ED 14:39 → EDHOLD 17:22 → 4E 17:22
PROVIDERS: Emergency Medicine; Internal Medicine; Internal Medicine Critical Care Medicine
DX: J18.9 Pneumonia, unspecified organism (principal); K85.90 Acute pancreatitis without necrosis or infection, unspecified; I10 Essential (primary) hypertension; E55.9 Vitamin D deficiency, unspecified; E11.9 Type 2 diabetes mellitus without complications; B96.0 Mycoplasma pneumoniae [M. pneumoniae] as the cause of diseases classified elsewhere; M35.9 Systemic involvement of connective tissue, unspecified; A08.4 Viral intestinal infection, unspecified; M79.1 Myalgia; E78.00 Pure hypercholesterolemia, unspecified; F41.9 Anxiety disorder, unspecified; M19.011 Primary osteoarthritis, right shoulder; M19.021 Primary osteoarthritis, right elbow; E66.9 Obesity, unspecified; K29.80 Duodenitis without bleeding; R91.1 Solitary pulmonary nodule; Z88.0 Allergy status to penicillin; Z88.8 Allergy status to other drugs, medicaments and biological substances; Z80.0 Family history of malignant neoplasm of digestive organs; Z86.73 Personal history of transient ischemic attack (TIA), and cerebral infarction without residual deficits; Z82.49 Family history of ischemic heart disease and other diseases of the circulatory system; Z84.89 Family history of other specified conditions; Z79.01 Long term (current) use of anticoagulants; M65.869 Other synovitis and tenosynovitis, unspecified lower leg; Z68.38 Body mass index [BMI] 38.0-38.9, adult

== ENCOUNTER → 2017-02-16 | Outpatient (CLI) | payer MEDICARE ==
[2017-02-16 11:29] LABS: INTERNATIONAL NORM RATIO 2.2 (2.0-3.5); PROTHROMBIN TIME 24.6 SECONDS (9.0-12.4)
== END | disposition home or self-care (01) ==
LOC: LAB 10:20
PROVIDERS: Psychiatry & Neurology Neurology
DX: I63.50 Cerebral infarction due to unspecified occlusion or stenosis of unspecified cerebral artery (principal); Z79.899 Other long term (current) drug therapy

== ENCOUNTER → 2017-04-08 | Outpatient (CLI) | payer MEDICARE ==
[2017-04-08 09:08] LABS: INTERNATIONAL NORM RATIO 1.8 (2.0-3.5); PROTHROMBIN TIME 19.6 SECONDS (9.0-12.4)
== END | disposition home or self-care (01) ==
LOC: LAB 08:21
PROVIDERS: Psychiatry & Neurology Neurology
DX: D68.312 Antiphospholipid antibody with hemorrhagic disorder (principal)

== ENCOUNTER → 2017-05-10 | Outpatient (CLI) | payer MEDICARE ==
[2017-05-10 17:24] LABS: INTERNATIONAL NORM RATIO 2.1 (2.0-3.5); PROTHROMBIN TIME 23.7 SECONDS (9.0-12.4)
== END | disposition home or self-care (01) ==
LOC: LAB 16:43
PROVIDERS: Psychiatry & Neurology Neurology
DX: D68.312 Antiphospholipid antibody with hemorrhagic disorder (principal)

== ENCOUNTER → 2017-06-20 | Outpatient (CLI) | payer MEDICARE ==
[2017-06-20 17:30] LABS: INTERNATIONAL NORM RATIO 2.6 (2.0-3.5)
== END | disposition home or self-care (01) ==
LOC: LAB 16:43
PROVIDERS: Psychiatry & Neurology Neurology
DX: D68.312 Antiphospholipid antibody with hemorrhagic disorder (principal)

== ENCOUNTER 2017-07-14 20:14 | Inpatient (IN) | payer MEDICARE ==
[~2017-07-14] VITALS: Ht 162.5 cm; Wt 111.2 kg
[2017-07-14] VITALS (12 sets, daily range): BP systolic 116–187; BP diastolic 69–94
--- NOTE | ~2017-07-14 | PR ---
[place], [place] PROGRESS NOTE NAME: NURYS BOYCE [facility] #: [id number] UNIT #: [id number] ROOM: 425 DOCTOR: EMMANUEL ARELLANO MD BIRTHDATE: [birth year] DOS: 07/16/2017 SUBJECTIVE: The patient is not having any new complaints. She feels good. Denies any chest pains, palpitations or shortness of breath. PHYSICAL EXAMINATION: GENERAL: The patient is awake and alert and oriented. LUNGS: Diminished breath sounds. No wheezes, rales or rhonchi heard. HEART: Regular. ABDOMEN: Obese. EXTREMITIES: Without any edema. ASSESSMENT AND PLAN: 1. Poorly controlled hypertension, improved and stable after the medication was increased. 2. Precordial pain, with a negative stress test. Plan is to discharge the patient to home today. EMMANUEL ARELLANO MD CM:PNTRANS [id number] EMMANUEL ARELLANO MD 07/18/17 1902 interface
--- NOTE | ~2017-07-14 | DS ---
[place], [place] DISCHARGE SUMMARY [id number] #: [id number] ROOM: 425 DOCTOR: EMMANUEL ARELLANO MD BIRTHDATE: [birth year] DOS: 07/16/2017 DIAGNOSES: 1. Poorly controlled hypertension. 2. Precordial pain with a negative stress test. 3. Mixed hyperlipidemia. 4. History of cerebrovascular accident, on long-term use of anticoagulants. 5. Generalized anxiety disorder. MEDICATIONS: Xanax 0.25 t.i.d. p.r.n., lovastatin 10 daily, levothyroxine 50 mcg daily, Coumadin alternating doses of 3 and 4 mg daily, enalapril which is increased to 10 b.i.d. HOSPITAL COURSE: The patient is 57 years old, very well known to us, comes in with rising blood pressures. Please refer to H and P for details. After admission, the patient was placed on increased dose of her home medications. Initially, beta blockers were added, but the patient became quite bradycardic, heart rate sometimes dropping into the low 30s. So, we decided not to add beta blockers or calcium channel blockers, instead was increased. With that, the blood pressures have been well controlled and she has not had any new complaints. She did complain of chest pain for this admission, so a stress test was performed and this come back negative. The patient is stable, can be discharged to home today. Follow up as an outpatient. EMMANUEL ARELLANO MD CM:DISCHARG [id number] EMMANUEL ARELLANO MD 07/16/17 0936 interface
--- NOTE | ~2017-07-14 | CON ---
[place], [place] REPORT OF CONSULTATION NAME[facility] [id number] UNIT #: [id number] ROOM: 425 DOCTOR: FRIDA HOLGUIN MD BIRTHDATE: [birth year] DOS: 07/15/2017 HISTORY OF PRESENT ILLNESS: This is a 57-year-old -[place] woman with a history of essential hypertension which at this time has not been controlled. She allegedly has had CVAs and TIAs, but with no residual and were mentioned to me in the past that she had a clot in her neck arteries, for which she has been on Coumadin for many years. She has morbid obesity, dyslipidemia and has had urinary tract infections. She has had renal insufficiency, peptic ulcer disease, but had never had COPD, heart failure or heart attack and no known coronary artery disease. In the past, she has had episodes of acute vertigo. She is on 10 mg of enalapril for blood pressure control and apparently her systolic blood pressure had been around 150-[address] Danae Hoffmann's office, her blood pressure had gone up over about 202/110 and she was admitted to the hospital. She did not have any headaches, chest pain, palpitations, dizziness or loss of consciousness. Previously, she has had slow heart rate and probably was due to use of verapamil in the remote past. She had no PND, orthopnea or swelling of the lower extremities. She does not smoke nor does she drink alcoholic beverages. HOME MEDICATIONS: Had included enalapril 10 mg daily, alprazolam 0.25 mg p.r.n., levothyroxine 50 mcg daily, lovastatin 10 mg daily and warfarin 3 mg alternating with 4 mg daily. PHYSICAL EXAMINATION: GENERAL: This reveals the patient who is morbidly obese, very pleasant, alert. She is not anemic. There is no thyromegaly from the clubbing. She is not jaundiced. CARDIOVASCULAR: Pulse is 80 regular while in bed, blood pressure 149/68. There is no cardiomegaly. No murmurs are present. NECK: Normal JVP. AJR is negative. There is no carotid bruit. EXTREMITIES: She has excellent pedal pulses and no pitting edema. LUNGS: Clear to percussion and auscultation. ABDOMEN: Supple, nontender, no organomegaly. There is no bruit. LABORATORY DATA: Chemistry panel is normal with creatinine of 0.81, glucose of 93 mg/dL and troponin I was less than 0.015, hemoglobin 13 g. Chest x-ray was unremarkable. An ECG was done on admission that demonstrated normal sinus rhythm at 81 beats per minute as a normal pattern. I had her walked in the hallway and her heart rate increased from 80 beats per minute at rest to 96 beats per minute, i.e., normal chronotropic response. IMPRESSION: 1. Hypertension. This is under much better control. I think 20 mg of enalapril should do the job. 2. Bradycardia, even though heart rate is somewhat slow at night, she is responding appropriately to activity, i.e., heart rate increases appropriately. [place], [place] REPORT OF CONSULTATION NAME: NURYS BOYCE [facility] #: [id number] UNIT #: [id number] ROOM: 425 DOCTOR: FRIDA HOLGUIN MD BIRTHDATE: [birth year] RECOMMENDATIONS: Increasing dose of enalapril. There is no need for a pacemaker. Dr. Davis performed a Lexiscan Cardiolite study on her, which she will be reporting upon. I thank you for this consult. FRIDA HOLGUIN MD CM:CONSTR:REPORT OF CONSULTATION 1525 07/18/17 1731 interface
--- NOTE | ~2017-07-14 | WRIGHTHP ---
[place], [place] PATIENT HISTORY AND PHYSICAL EXAM NAME: NURYS BOYCE [facility] #: [id number] UNIT #: [id number] ROOM: 425 DOCTOR: EMMANUEL ARELLANO MD BIRTHDATE: [birth year] DOS: 07/15/2017 HISTORY OF PRESENT ILLNESS: The patient is 49 years old. The patient came into the office yesterday with a flushed face, headaches, and dizziness. His pressure has been going up steadily for the last 2-3 days. At the time she arrived to the office, it was 200/120. The patient had an EKG, which did not show any abnormalities other than poor R-wave progression. After several minutes in the office, the pressures did come down. The patient was started on verapamil 120 and discharged to home. Pharmacy did not have the verapamil 120, so she was unable to take it. By evening, the pressure started going up again and her face got flushed. She had some diaphoresis, so she came back to the Emergency Room. In the ER, pressure was pretty high, so she was admitted to the hospital with poorly controlled hypertension. The patient also had some chest pain before she came into the Emergency Room 2-3 days ago. She denies having any chest pains right now, does not have any fever, any chills, does not have any abdominal pain, nausea, any emesis. During the night, her heart rate did go down into the low 50s and occasionally into the high 40s. The patient was not dizzy or lightheaded. She was in deep sleep when it happened. PAST MEDICAL HISTORY: Significant for: 1. Fever of unknown origin, with hospitalization in 12/2016. 2. Benign hypertension. 3. Mycoplasma pneumonia in the past. 4. CVA about 25 years ago with long-term use of anticoagulants. 5. Retroperitoneal lymphadenopathy continued workup at [facility]. MEDICATIONS: She is on are currently is Xanax 0.5 t.i.d. p.r.n., enalapril 10 daily, levothyroxine 0.05 mg daily, lovastatin 10 daily, warfarin alternate 3 and 4 mg. SOCIAL HISTORY: Nonsmoker, does not use any alcohol. PHYSICAL EXAMINATION: GENERAL: The patient is awake and alert and oriented, in no distress. VITAL SIGNS: Graphic trend shows a pressure 138/60 at midnight, pulse of 60, respirations 20, temperature 98.0. LUNGS: Diminished breath sounds. No wheezes, rales or rhonchi heard. HEART: Regular. ABDOMEN: Obese, soft, nontender. EXTREMITIES: Without any edema. LABORATORY DATA: All within normal limits. Protime is therapeutic at 2.2 INR. Chest x-ray does not show any pathology. ASSESSMENT AND PLAN: 1. The patient with benign hypertension, which is poorly controlled. Did start her on beta stephanie, but she has a tendency to become quite bradycardic. So we will discontinue beta blockers and place her on an increased dose of enalapril to twice a day. 2. Recent complaints of precordial pain. The patient to have a stress test [place], [place] PATIENT HISTORY AND PHYSICAL EXAM [facility]: [id number] UNIT #: [id number] ROOM: [facility] DOCTOR: EMMANUEL ARELLANO MD BIRTHDATE: [birth year] today. 3. Generalized anxiety disorder fairly under control. If the stress test comes back negative and the pressure should be okay, the plan is to discharge her to home in the morning. EMMANUEL ARELLANO MD CM:HISPHYS:PATIENT HISTORY AND PHYSICAL EXAMINATION 3 9 EMMANUEL ARELLANO MD 07/15/17909 interface
[2017-07-14 20:55] LABS: BASO % 0.6 % (0.0-1.0); EOS # 0.1 10*3/uL (0.0-0.4); EOS % 1.2 % (1.0-4.0); HEMATOCRIT 41.1 % (37.0-47.0); LYMPH # 2.7 10*3/uL (1.3-4.4); LYMPH % 40.5 % (27.0-41.0); MEAN CELL VOLUME 84.2 fl (81.0-99.0); MEAN CORPUSCULAR HGB 26.6 pg (27.0-31.0); MEAN CORPUSCULAR HGB CONC 31.6 g/dl (33.0-37.0); MONO # 0.3 10*3/uL (0.1-1.0); MONO % 4.1 % (3.0-9.0); NEUT # 3.5 10*3/uL (2.3-7.9); NEUT % 53.3 % (47.0-73.0); PLATELET COUNT AUTOMATED 163 10*3/uL (130-400); RED BLOOD COUNT 4.88 10*6/uL (4.10-5.10); RED CELL DISTRI WIDTH 14.7 % (0-14.5); WHITE BLOOD COUNT 6.6 10*3/uL (4.8-10.8)
[2017-07-14 21:05] LABS: ACT PARTIAL THROMBO TIME 31.9 SECONDS (20.8-31.5); INTERNATIONAL NORM RATIO 2.2 (2.0-3.5)
[2017-07-14 21:10] LABS: ALBUMIN 3.9 gm/dl (3.1-4.5); ALKALINE PHOSPHATASE 80 U/L (45-117); BUN 15 mg/dl (7-24); CHLORIDE 103 mmol/L (98-107); CREATININE 0.81 mg/dL (0.55-1.02); MAGNESIUM 2.1 mg/dL (1.5-2.1); POTASSIUM 4.2 mmol/L (3.5-5.1); SGOT/AST 18 IU/L (3-35); SGPT/ALT 19 U/L (12-78); SODIUM 139 mmol/L (136-145); TOTAL PROTEIN 7.4 gm/dL (6.4-8.2)
[2017-07-14 21:14] LABS: TROPONIN I < 0.015 ng/ml (<0.045)
--- NOTE | 2017-07-14 22:30 | NUR ---
A 57, admitted to 4E, under the services of EMMANUEL Quintana MD with a diagnosis of HYPERTENSIVE URGENCY. Chief complaint is HYPERTENSION. Patient arrived via bed from ER. Monitor applied. Initial assessment completed. Vital signs taken and recorded. EMMANUEL QUINTANA MD notified of admission to the unit. Orders received. See assessment for past medical history, medications and allergies. Patient and/or family oriented to unit. visitation policy reviewed. Clothing/patient valuable form completed. SHUKRI VALIENTE
[2017-07-15] VITALS: BP 138/60
--- NOTE | 2017-07-15 | NUR ---
HOME MEDICATIONS VERIFIED WITH PATIENT AND DR. ARELLANO NOTIFIED OF ADMISSION TO FLOOR. NEW ORDERS OBTAINED. DR. HOLGUIN NOTIFIED OF CONSULT.
--- NOTE | 2017-07-15 05:01 | NUR ---
PATIENT MEDICATED WITH TYLENOL AT 2325 FOR COMPLAINTS OF A HEADACHE WITH EFFECTIVE RESULTS NOTED. RESTING IN BED WITH EYES CLOSED AT THIS TIME. PATIENT HEARTRATE DROPPED INTO THE 40'S A COUPLE TIMES THROUGHT THE NIGHT. WILL CONTINUE TO MONITOR. CALL LIGHT IN REACH.
[2017-07-15 08:00] VITALS: BP 149/68
--- NOTE | 2017-07-15 08:12 | NUR ---
MEDICATED FOR ANXIETY.
--- NOTE | 2017-07-15 08:32 | NUR ---
Patient Safety Tech in to talk to patient. Patient states lives at [address] with HER . There are 0 steps in the home. Physician: DR ARELLANO Pharmacy: [facility] Home health services: NONE Patient's level of ADLs: INDEPENDENT Patient has working utilities: YES DME: NONE Follow-up physician's appointment after d/c: PREFERS TO MAKE HER OWN APPT Does patient want to access PORTAL?: Discharge plan HOME. ROSEMARY SANCHEZ
--- NOTE | 2017-07-15 11:41 | NUR ---
INFORMED SIGNED CONSENT OBTAINED FOR LEXISCAN STRESS TEST WITH DR MANTILLA RESTING EKG NSR HR 65 BP 150/92. PULSE OX 98% LUNGS CLEAR. PT COMPLETED ONE MINUTE OF A LEXISCAN PROTOCOL WITH PT RECEIVING LEXISCAN 0.4MG IV OVER 10 SECONDS. RARE PVC NOTED. NO ST CHANGES. PT C/O SOB, NAUSE AND HEADACHE WITH INJECTION. LAST RECOVERY HR OF 98 BP 150/84. PT IN STABLE CONDITION, AWAITING NUCLEAR IMAGES.
--- NOTE | 2017-07-15 13:27 | NUR ---
MEDICATED WITH TYLENOL FOR HEADACHE OF 8 OUT OF TEN ON THE PAIN SCALE.
[2017-07-15 16:00] VITALS: BP 160/76
[2017-07-15 20:00] VITALS: BP 142/82
[2017-07-16] VITALS: BP 152/65
[2017-07-16] MEDS ORDERED: ENALAPRIL MALEA10 MG PO (06:47)
[2017-07-16 08:00] VITALS: BP 155/83
--- NOTE | 2017-07-16 08:00 | NUR ---
Patient resting quietly with no c/o discomfort. Respirations easy and regular. Vital signs stable. No overt distress. ANDREW CAIN R
--- NOTE | 2017-07-16 08:45 | NUR ---
Discharge instructions reviewed with patient/family. Patient receptive and verbalizes understanding. Follow-up care arranged. Written instructions given to patient/family. ANDREW CAIN
== END 2017-07-16 08:45 | disposition home or self-care (01) | DRG 305 ==
LOC: ED 20:14 → EDHOLD 21:40 → 4E 21:40
PROVIDERS: Student in an Organized Health Care Education/Training Program; ADMIT Internal Medicine
PROC: 4A02XM4 Measurement of Cardiac Total Activity, External Approach (ICD-10-PCS; principal; 2017-07-15)
PROC: 3E073KZ Introduction of Other Diagnostic Substance into Coronary Artery, Percutaneous Approach (ICD-10-PCS; principal; 2017-07-15)
DX: I16.0 Hypertensive urgency (principal); Z68.41 Body mass index [BMI] 40.0-44.9, adult; I10 Essential (primary) hypertension; E78.2 Mixed hyperlipidemia; F41.1 Generalized anxiety disorder; R07.2 Precordial pain; E66.01 Morbid (severe) obesity due to excess calories; Z91.048 Other nonmedicinal substance allergy status; Z79.899 Other long term (current) drug therapy; Z86.73 Personal history of transient ischemic attack (TIA), and cerebral infarction without residual deficits; Z88.0 Allergy status to penicillin; Z79.01 Long term (current) use of anticoagulants; Z82.49 Family history of ischemic heart disease and other diseases of the circulatory system; Z80.9 Family history of malignant neoplasm, unspecified; Z87.01 Personal history of pneumonia (recurrent); Z87.440 Personal history of urinary (tract) infections; Z87.11 Personal history of peptic ulcer disease

== ENCOUNTER → 2017-07-20 | Outpatient (CLI) | payer MEDICARE ==
[2017-07-20 14:51] LABS: INTERNATIONAL NORM RATIO 3.4 (2.0-3.5)
== END | disposition home or self-care (01) ==
LOC: LAB 13:41
PROVIDERS: Psychiatry & Neurology Neurology
DX: D68.312 Antiphospholipid antibody with hemorrhagic disorder (principal)

== ENCOUNTER → 2017-08-02 | Outpatient (CLI) | payer MEDICARE ==
[2017-08-02 12:50] LABS: INTERNATIONAL NORM RATIO 2.6 (2.0-3.5)
== END | disposition home or self-care (01) ==
LOC: LAB 11:33
PROVIDERS: Psychiatry & Neurology Neurology
DX: D68.312 Antiphospholipid antibody with hemorrhagic disorder (principal)

== ENCOUNTER → 2017-09-01 | Outpatient (CLI) | payer MEDICARE ==
[2017-09-01 16:45] LABS: INTERNATIONAL NORM RATIO 2.5 (2.0-3.5)
== END ==
LOC: LAB 15:59
PROVIDERS: Psychiatry & Neurology Neurology
DX: D68.312 Antiphospholipid antibody with hemorrhagic disorder (principal)

== ENCOUNTER 2017-09-09 21:02 | Emergency (ER) | payer MEDICARE ==
[~2017-09-09] VITALS: Ht 157.4 cm; Wt 108.9 kg
[2017-09-09 22:50] VITALS: BP 149/74
[2017-09-09 23:06] LABS: INTERNATIONAL NORM RATIO 2.5 (2.0-3.5)
[2017-09-09 23:51] LABS: BASO # 0.1 10*3/uL (0.0-0.1); BASO % 0.7 % (0.0-1.0); EOS # 0.1 10*3/uL (0.0-0.4); EOS % 0.7 % (1.0-4.0); HEMATOCRIT 40.8 % (37.0-47.0); HEMOGLOBIN 12.8 g/dl (12.0-16.0); LYMPH # 2.1 10*3/uL (1.3-4.4); LYMPH % 28.5 % (27.0-41.0); MEAN CELL VOLUME 85.4 fl (81.0-99.0); MEAN CORPUSCULAR HGB 26.8 pg (27.0-31.0); MEAN CORPUSCULAR HGB CONC 31.4 g/dl (33.0-37.0); MEAN PLATELET VOLUME 9.6 fl (9.6-12.3); MONO # 0.4 10*3/uL (0.1-1.0); MONO % 4.8 % (3.0-9.0); NEUT # 4.7 10*3/uL (2.3-7.9); NEUT % 64.9 % (47.0-73.0); PLATELET COUNT AUTOMATED 217 10*3/uL (130-400); RED BLOOD COUNT 4.78 10*6/uL (4.10-5.10); RED CELL DISTRI WIDTH 14.4 % (0-14.5); WHITE BLOOD COUNT 7.3 10*3/uL (4.8-10.8)
[2017-09-10 00:02] LABS: ALBUMIN 3.9 gm/dl (3.1-4.5); ALKALINE PHOSPHATASE 78 U/L (45-117); BUN 18 mg/dl (7-24); CHLORIDE 104 mmol/L (98-107); CREATININE 0.66 mg/dL (0.55-1.02); POTASSIUM 4.4 mmol/L (3.5-5.1); SGOT/AST 16 IU/L (3-35); SGPT/ALT 19 U/L (12-78); SODIUM 141 mmol/L (136-145); TOTAL PROTEIN 7.2 gm/dL (6.4-8.2)
== END 2017-09-10 00:37 | disposition home or self-care (01) ==
LOC: ED 21:02
PROVIDERS: Emergency Medicine
DX: R20.2 Paresthesia of skin (principal); R51 Headache; Z86.73 Personal history of transient ischemic attack (TIA), and cerebral infarction without residual deficits; Z88.0 Allergy status to penicillin

== ENCOUNTER 2017-09-16 18:35 | Emergency (ER) | payer MEDICARE ==
[~2017-09-16] VITALS: Wt 113.4 kg
[2017-09-16 19:02] LABS: BASO # 0.1 10*3/uL (0.0-0.1); BASO % 0.8 % (0.0-1.0); EOS # 0.1 10*3/uL (0.0-0.4); HEMATOCRIT 42.1 % (37.0-47.0); HEMOGLOBIN 13.4 g/dl (12.0-16.0); LYMPH # 2.7 10*3/uL (1.3-4.4); LYMPH % 45.5 % (27.0-41.0); MEAN CELL VOLUME 84.2 fl (81.0-99.0); MEAN CORPUSCULAR HGB 26.8 pg (27.0-31.0); MEAN CORPUSCULAR HGB CONC 31.8 g/dl (33.0-37.0); MEAN PLATELET VOLUME 9.2 fl (9.6-12.3); MONO # 0.3 10*3/uL (0.1-1.0); MONO % 5.4 % (3.0-9.0); NEUT # 2.8 10*3/uL (2.3-7.9); PLATELET COUNT AUTOMATED 183 10*3/uL (130-400); RED CELL DISTRI WIDTH 14.3 % (0-14.5)
[2017-09-16 19:13] VITALS: BP 133/81
[2017-09-16 19:20] LABS: ACT PARTIAL THROMBO TIME 31.1 SECONDS (20.8-31.5); ALKALINE PHOSPHATASE 82 U/L (45-117); BUN 12 mg/dl (7-24); CHLORIDE 103 mmol/L (98-107); CREATININE 0.85 mg/dL (0.55-1.02); INTERNATIONAL NORM RATIO 2.2 (2.0-3.5); POTASSIUM 3.5 mmol/L (3.5-5.1); SGOT/AST 16 IU/L (3-35); SGPT/ALT 22 U/L (12-78); SODIUM 138 mmol/L (136-145); TOTAL PROTEIN 7.6 gm/dL (6.4-8.2)
[2017-09-16 19:21] LABS: TROPONIN I < 0.015 ng/ml (<0.045)
== END 2017-09-16 20:05 | disposition home or self-care (01) ==
LOC: ED 18:35
PROVIDERS: Emergency Medicine
DX: R20.0 Anesthesia of skin (principal); T43.225A Adverse effect of selective serotonin reuptake inhibitors, initial encounter; R51 Headache; Y92.89 Other specified places as the place of occurrence of the external cause; I10 Essential (primary) hypertension; Z88.0 Allergy status to penicillin; Z88.8 Allergy status to other drugs, medicaments and biological substances; Z79.899 Other long term (current) drug therapy; Z86.73 Personal history of transient ischemic attack (TIA), and cerebral infarction without residual deficits

== ENCOUNTER → 2017-10-06 | Outpatient (CLI) | payer MEDICARE ==
[2017-10-06 10:51] LABS: INTERNATIONAL NORM RATIO 2.1 (2.0-3.5)
== END | disposition home or self-care (01) ==
LOC: LAB 09:39
PROVIDERS: Psychiatry & Neurology Neurology
DX: D68.312 Antiphospholipid antibody with hemorrhagic disorder (principal)

== ENCOUNTER → 2017-11-01 | Outpatient (CLI) | payer MEDICARE ==
[2017-11-01 15:49] LABS: INTERNATIONAL NORM RATIO 2.4 (2.0-3.5)
== END | disposition home or self-care (01) ==
LOC: LAB 15:09
PROVIDERS: Psychiatry & Neurology Neurology
DX: D68.312 Antiphospholipid antibody with hemorrhagic disorder (principal)

== ENCOUNTER → 2017-11-30 | Outpatient (CLI) | payer MEDICARE ==
[2017-11-30 12:08] LABS: INTERNATIONAL NORM RATIO 2.2 (2.0-3.5)
== END | disposition home or self-care (01) ==
LOC: LAB 10:42
PROVIDERS: Psychiatry & Neurology Neurology
DX: D68.312 Antiphospholipid antibody with hemorrhagic disorder (principal)

== ENCOUNTER 2017-12-19 13:53 | Emergency (ER) | payer MEDICARE ==
[~2017-12-19] VITALS: Wt 115.7 kg
[2017-12-19 14:31] LABS: BASO # 0.1 10*3/uL (0.0-0.1); BASO % 0.8 % (0.0-1.0); EOS # 0.1 10*3/uL (0.0-0.4); EOS % 1.4 % (1.0-4.0); HEMATOCRIT 42.1 % (37.0-47.0); HEMOGLOBIN 13.5 g/dl (12.0-16.0); LYMPH # 1.9 10*3/uL (1.3-4.4); LYMPH % 30.5 % (27.0-41.0); MEAN CORPUSCULAR HGB 26.6 pg (27.0-31.0); MEAN CORPUSCULAR HGB CONC 32.1 g/dl (33.0-37.0); MEAN PLATELET VOLUME 9.4 fl (9.6-12.3); MONO # 0.3 10*3/uL (0.1-1.0); NEUT # 3.9 10*3/uL (2.3-7.9); NEUT % 62.8 % (47.0-73.0); PLATELET COUNT AUTOMATED 179 10*3/uL (130-400); RED BLOOD COUNT 5.07 10*6/uL (4.10-5.10); RED CELL DISTRI WIDTH 14.1 % (0-14.5); WHITE BLOOD COUNT 6.3 10*3/uL (4.8-10.8)
[2017-12-19 14:40] LABS: BILIRUBIN NEGATIVE (NEGATIVE); BLOOD NEGATIVE (NEGATIVE); CLARITY CLEAR (CLEAR); COLOR YELLOW (YELLOW); GLUCOSE NEGATIVE (NEGATIVE); KETONE NEGATIVE (NEGATIVE); LEUKO ESTERASE TRACE (NEGATIVE); NITRITE NEGATIVE (NEGATIVE); UROBILINOGEN 0.2 E.U./dl (0.2-1.0)
[2017-12-19 14:43] LABS: INTERNATIONAL NORM RATIO 2.4 (2.0-3.5)
[2017-12-19 14:46] LABS: ALBUMIN 3.9 gm/dl (3.1-4.5); ALKALINE PHOSPHATASE 79 U/L (45-117); BUN 13 mg/dl (7-24); CHLORIDE 104 mmol/L (98-107); POTASSIUM 4.1 mmol/L (3.5-5.1); SGOT/AST 20 IU/L (3-35); SGPT/ALT 26 U/L (12-78); SODIUM 140 mmol/L (136-145); TOTAL PROTEIN 7.5 gm/dL (6.4-8.2)
[2017-12-19 14:47] LABS: RBC 0-2 rbc/hpf (0-2)
[2017-12-19 14:48] LABS: BACTERIA 1+; EPITHELIAL CELLS 0-2
[2017-12-19 14:54] LABS: TROPONIN I < 0.015 ng/ml (<0.045)
[2017-12-19] MEDS ORDERED: MACROBID100 M1 PO (15:00)
[2017-12-19 15:52] VITALS: BP 148/74
== END 2017-12-19 15:43 | disposition home or self-care (01) ==
LOC: ED 13:53
PROVIDERS: Physician Assistant
DX: N30.01 Acute cystitis with hematuria (principal); I10 Essential (primary) hypertension; Z86.73 Personal history of transient ischemic attack (TIA), and cerebral infarction without residual deficits; Z79.02 Long term (current) use of antithrombotics/antiplatelets; Z88.0 Allergy status to penicillin; Z88.1 Allergy status to other antibiotic agents; Z79.899 Other long term (current) drug therapy

== ENCOUNTER → 2017-12-26 | Outpatient (CLI) | payer MEDICARE ==
[~2017-12-26] MED LIST changes: +MACROBID100 M1 PO
[2017-12-26 07:39] LABS: BASO # 0.1 10*3/uL (0.0-0.1); BASO % 1.2 % (0.0-1.0); EOS # 0.1 10*3/uL (0.0-0.4); EOS % 2.7 % (1.0-4.0); HEMATOCRIT 41.1 % (37.0-47.0); HEMOGLOBIN 12.9 g/dl (12.0-16.0); LYMPH # 2.3 10*3/uL (1.3-4.4); LYMPH % 44.4 % (27.0-41.0); MEAN CORPUSCULAR HGB CONC 31.4 g/dl (33.0-37.0); MEAN PLATELET VOLUME 9.6 fl (9.6-12.3); MONO # 0.3 10*3/uL (0.1-1.0); MONO % 5.2 % (3.0-9.0); NEUT # 2.4 10*3/uL (2.3-7.9); NEUT % 46.3 % (47.0-73.0); PLATELET COUNT AUTOMATED 168 10*3/uL (130-400); RED BLOOD COUNT 4.78 10*6/uL (4.10-5.10); RED CELL DISTRI WIDTH 14.5 % (0-14.5); WHITE BLOOD COUNT 5.2 10*3/uL (4.8-10.8)
[2017-12-26 08:07] LABS: ALBUMIN 3.6 gm/dl (3.1-4.5); ALKALINE PHOSPHATASE 90 U/L (45-117); BUN 16 mg/dl (7-24); CHLORIDE 108 mmol/L (98-107); CHOLESTEROL 153 mg/dL (<200); CREATININE 0.86 mg/dL (0.55-1.02); FREE T4 1.22 ng/dl (0.76-1.46); HDL CHOLESTEROL 48 mg/dl (40-60); INTERNATIONAL NORM RATIO 2.6 (2.0-3.5); LDL CHOLESTEROL 86 mg/dL (9-159); POTASSIUM 3.9 mmol/L (3.5-5.1); SGOT/AST 15 IU/L (3-35); SGPT/ALT 21 U/L (12-78); SODIUM 142 mmol/L (136-145); TRIGLYCERIDES 94 mg/dl (<150); VLDL CHOLESTEROL 19 mg/dL (6-40)
== END | disposition home or self-care (01) ==
LOC: LAB 07:11
PROVIDERS: Internal Medicine; Psychiatry & Neurology Neurology
DX: Z13.1 Encounter for screening for diabetes mellitus (principal); Z13.220 Encounter for screening for lipoid disorders; Z00.01 Encounter for general adult medical examination with abnormal findings; Z13.21 Encounter for screening for nutritional disorder; E55.9 Vitamin D deficiency, unspecified; D68.312 Antiphospholipid antibody with hemorrhagic disorder; Z79.899 Other long term (current) drug therapy

== ENCOUNTER → 2018-01-24 | Outpatient (CLI) | payer MEDICARE ==
[2018-01-24 13:27] LABS: INTERNATIONAL NORM RATIO 2.4 (2.0-3.5)
== END | disposition home or self-care (01) ==
LOC: LAB 12:33
PROVIDERS: Psychiatry & Neurology Neurology
DX: D68.312 Antiphospholipid antibody with hemorrhagic disorder (principal)

== ENCOUNTER 2018-02-19 05:02 | Emergency (ER) | payer MEDICARE ==
[~2018-02-19] VITALS: Ht 172.7 cm; Wt 113.4 kg
[2018-02-19] MEDS ORDERED: CIPRO500 MG PO (05:14)
[2018-02-19 05:25] LABS: BASO % 0.5 % (0.0-1.0); EOS # 0.1 10*3/uL (0.0-0.4); EOS % 1.1 % (1.0-4.0); HEMATOCRIT 41.7 % (37.0-47.0); HEMOGLOBIN 13.3 g/dl (12.0-16.0); LYMPH # 3.5 10*3/uL (1.3-4.4); LYMPH % 41.9 % (27.0-41.0); MEAN CELL VOLUME 83.6 fl (81.0-99.0); MEAN CORPUSCULAR HGB 26.7 pg (27.0-31.0); MEAN CORPUSCULAR HGB CONC 31.9 g/dl (33.0-37.0); MONO # 0.6 10*3/uL (0.1-1.0); MONO % 6.7 % (3.0-9.0); NEUT # 4.1 10*3/uL (2.3-7.9); NEUT % 49.4 % (47.0-73.0); PLATELET COUNT AUTOMATED 184 10*3/uL (130-400); RED BLOOD COUNT 4.99 10*6/uL (4.10-5.10); RED CELL DISTRI WIDTH 14.7 % (0-14.5); WHITE BLOOD COUNT 8.3 10*3/uL (4.8-10.8)
[2018-02-19 05:35] LABS: ACT PARTIAL THROMBO TIME 34.9 SECONDS (20.8-31.5); INTERNATIONAL NORM RATIO 3.2 (2.0-3.5)
[2018-02-19 05:42] LABS: ALBUMIN 3.9 gm/dl (3.1-4.5); ALKALINE PHOSPHATASE 90 U/L (45-117); BUN 17 mg/dl (7-24); CHLORIDE 99 mmol/L (98-107); CREATININE 0.91 mg/dL (0.55-1.02); POTASSIUM 3.8 mmol/L (3.5-5.1); SGOT/AST 25 IU/L (3-35); SGPT/ALT 28 U/L (12-78); SODIUM 135 mmol/L (136-145); TOTAL PROTEIN 7.3 gm/dL (6.4-8.2)
[2018-02-19 05:48] LABS: TROPONIN I < 0.015 ng/ml (<0.045)
[2018-02-19] MEDS ORDERED: PROTONIX40 MG PO (06:26)
[2018-02-19 06:40] LABS: BILIRUBIN NEGATIVE (NEGATIVE); BLOOD 1+ (NEGATIVE); CLARITY SL CLOUDY (CLEAR); COLOR YELLOW (YELLOW); GLUCOSE NEGATIVE (NEGATIVE); KETONE NEGATIVE (NEGATIVE); LEUKO ESTERASE 2+ (NEGATIVE); NITRITE NEGATIVE (NEGATIVE); SPECIFIC GRAVITY >= 1.030 (1.005-1.030); UROBILINOGEN 0.2 E.U./dl (0.2-1.0)
[2018-02-19 07:03] LABS: BACTERIA 2+; RBC 16-20 rbc/hpf (0-2); WBC 31-40 wbc/hpf (0-5)
[2018-02-19 07:10] VITALS: BP 142/85
== END 2018-02-19 08:34 | disposition home or self-care (01) ==
LOC: ED 05:02
PROVIDERS: Emergency Medicine Emergency Medical Services
DX: K30 Functional dyspepsia (principal); Z86.73 Personal history of transient ischemic attack (TIA), and cerebral infarction without residual deficits; Z88.0 Allergy status to penicillin; Z79.2 Long term (current) use of antibiotics; Z79.01 Long term (current) use of anticoagulants

== ENCOUNTER → 2018-02-23 | Outpatient (CLI) | payer MEDICARE ==
[~2018-02-23] MED LIST changes: +CIPRO500 MG PO; +PROTONIX40 MG PO
[2018-02-23 11:11] LABS: INTERNATIONAL NORM RATIO 1.9 (2.0-3.5)
== END | disposition home or self-care (01) ==
LOC: LAB 09:59
PROVIDERS: Psychiatry & Neurology Neurology
DX: D68.61 Antiphospholipid syndrome (principal)

== ENCOUNTER → 2018-03-01 | Outpatient (CLI) | payer MEDICARE | END | disposition home or self-care (01) | LOC: MAMMO 01:50 | DX: Z12.31 Encounter for screening mammogram for malignant neoplasm of breast (principal) ==

== ENCOUNTER → 2018-03-23 | Outpatient (CLI) | payer MEDICARE ==
[2018-03-23 10:58] LABS: INTERNATIONAL NORM RATIO 2.6 (2.0-3.5)
== END | disposition home or self-care (01) ==
LOC: LAB 10:15
PROVIDERS: Psychiatry & Neurology Neurology
DX: D68.61 Antiphospholipid syndrome (principal)

== ENCOUNTER → 2018-04-24 | Outpatient (CLI) | payer MEDICARE ==
[2018-04-24 08:37] LABS: BASO # 0.1 10*3/uL (0.0-0.1); BASO % 1.2 % (0.0-1.0); EOS # 0.1 10*3/uL (0.0-0.4); EOS % 1.4 % (1.0-4.0); HEMATOCRIT 43.7 % (37.0-47.0); HEMOGLOBIN 13.2 g/dl (12.0-16.0); LYMPH # 2.3 10*3/uL (1.3-4.4); MEAN CELL VOLUME 87.6 fl (81.0-99.0); MEAN CORPUSCULAR HGB 26.5 pg (27.0-31.0); MEAN CORPUSCULAR HGB CONC 30.2 g/dl (33.0-37.0); MEAN PLATELET VOLUME 9.6 fl (9.6-12.3); MONO # 0.3 10*3/uL (0.1-1.0); MONO % 6.4 % (3.0-9.0); NEUT # 2.2 10*3/uL (2.3-7.9); NEUT % 44.4 % (47.0-73.0); PLATELET COUNT AUTOMATED 196 10*3/uL (130-400); RED BLOOD COUNT 4.99 10*6/uL (4.10-5.10); RED CELL DISTRI WIDTH 14.4 % (0-14.5)
[2018-04-24 08:51] LABS: INTERNATIONAL NORM RATIO 2.6 (2.0-3.5)
[2018-04-24 08:55] LABS: ALKALINE PHOSPHATASE 82 U/L (45-117); BUN 14 mg/dl (7-24); CHLORIDE 106 mmol/L (98-107); CHOLESTEROL 169 mg/dL (<200); CREATININE 0.91 mg/dL (0.55-1.02); HDL CHOLESTEROL 41 mg/dl (40-60); LDL CHOLESTEROL 105 mg/dL (9-159); POTASSIUM 3.9 mmol/L (3.5-5.1); SGOT/AST 14 IU/L (3-35); SGPT/ALT 26 U/L (12-78); SODIUM 144 mmol/L (136-145); TOTAL PROTEIN 7.4 gm/dL (6.4-8.2); TRIGLYCERIDES 114 mg/dl (<150); VLDL CHOLESTEROL 23 mg/dL (6-40)
[2018-04-24 09:54] LABS: VITAMIN D, 25-HYDROXY 22.9 ng/mL (30-100)
== END | disposition home or self-care (01) ==
LOC: LAB 08:04
PROVIDERS: Psychiatry & Neurology Neurology
DX: D68.61 Antiphospholipid syndrome (principal); R53.81 Other malaise; E55.9 Vitamin D deficiency, unspecified; E78.2 Mixed hyperlipidemia; E03.9 Hypothyroidism, unspecified; D52.9 Folate deficiency anemia, unspecified; D51.9 Vitamin B12 deficiency anemia, unspecified

== ENCOUNTER → 2018-05-24 | Outpatient (CLI) | payer MEDICARE ==
[2018-05-24 10:37] LABS: INTERNATIONAL NORM RATIO 2.5 (2.0-3.5)
== END | disposition home or self-care (01) ==
LOC: LAB 09:26
PROVIDERS: Psychiatry & Neurology Neurology
DX: D68.61 Antiphospholipid syndrome (principal)

== ENCOUNTER → 2018-07-25 | Outpatient (CLI) | payer MEDICARE ==
[~2018-07-25] MED LIST changes: +DOXYCYCLINE100 M3 PO; +KLONOPIN0.5 MG PO
[2018-07-25 12:39] LABS: INTERNATIONAL NORM RATIO 3.1 (2.0-3.5)
== END | disposition home or self-care (01) ==
LOC: LAB 11:24
PROVIDERS: Psychiatry & Neurology Neurology
DX: D68.61 Antiphospholipid syndrome (principal)

== ENCOUNTER → 2018-08-23 | Outpatient (CLI) | payer MEDICARE ==
[2018-08-23 11:59] LABS: INTERNATIONAL NORM RATIO 2.6 (2.0-3.5)
== END | disposition home or self-care (01) ==
LOC: LAB 10:50
PROVIDERS: Psychiatry & Neurology Neurology
DX: D68.61 Antiphospholipid syndrome (principal); Z79.01 Long term (current) use of anticoagulants

== ENCOUNTER → 2018-09-25 | Outpatient (CLI) | payer MEDICARE | END | disposition home or self-care (01) | LOC: LAB 09:27 | DX: D68.61 Antiphospholipid syndrome (principal); Z79.01 Long term (current) use of anticoagulants ==

== ENCOUNTER 2018-09-28 16:28 | Inpatient (IN) | payer MEDICARE ==
[~2018-09-28] VITALS: Ht 162.5 cm; Wt 120.8 kg
--- NOTE | ~2018-09-28 | EKG ---
[place], [place] ELECTROCARDIOGRAM REPORT NAME: NURYS BOYCE UNIT #: [id number] ROOM: 406 DOCTOR: VERONICA DRAFT REPORT BIRTHDATE: [birth year] [facility] Test Date: 2018-09-28 Test Time: 17:06:41 Pat Name: NURYS BOYCE Department: ER Room: 406 Gender: F Environmental Science Technician: EKG.NC : 1960 Requested By: KAREN HODGES DNP Order Number: [id number] Reading MD: Navarro Davis MD Measurements Intervals [place] Rate: 95 P: 35 TX: 182 QRS: 16 QRSD: 81 T: 41 QT: 362 QTc: 455 Interpretive Statements Sinus rhythm Probable left atrial enlargement Poor precordial R-wave progression Electronically Signed On 09-29-2018 19:09:22 PST by Navarro Davis MD CM:EKGRPT:ELECTROCARDIOGRAM REPORT 08 KAREN HODGES DNP EPIPHANY DRAFT REPORT KAREN HODGES DNP
--- NOTE | ~2018-09-28 | WRIGHTHP ---
[place], [place] PATIENT HISTORY AND PHYSICAL EXAM NAME: NURYS BOYCE [facility] #: [id number] UNIT #: [id number] ROOM: 406 DOCTOR: EMMANUEL ARELLANO MD BIRTHDATE: [birth year] DOS: HISTORY OF PRESENT ILLNESS: This patient is 58 years old, very well known to us, comes in with complaints of dizziness. The patient states that when she walks, she feels that she is walking in a crooked path, even though she is walking straight. The patient came to the Emergency Room and was evaluated, was admitted for further workup. This morning, the patient states that she did go to the bathroom and while walking, did not experience any more dizziness. She does not complain of any dizziness when she turns her head or gets up fast in a sitting position. She denies having any headaches, any blurred vision, double vision. PAST MEDICAL HISTORY: Significant for: 1. History of cerebrovascular accident, parietal infarct, which happened many years ago. 2. Benign hypertension. 3. Mixed hyperlipidemia. 4. Generalized anxiety disorder. MEDICATIONS: Medications that she is currently on are enalapril 10 b.i.d., levothyroxine 50 mcg daily, lovastatin 10 daily, Klonopin 0.5 b.i.d., warfarin 3 mg alternating with 4 mg. SOCIAL HISTORY: Nonsmoker, does not use any alcohol. Lives at home with . She does not have any children. PHYSICAL EXAMINATION: GENERAL: She is awake and alert and oriented. VITAL SIGNS: Graphic trend shows a pressure of 153/76, pulse of 72, respirations 18, temperature 97.9, pressure was 189/88 at the time of admission. LUNGS: Clear. HEART: Regular. ABDOMEN: Obese, soft, nontender. EXTREMITIES: Without any edema. NEUROLOGIC: No neurological deficits. HEENT: Does reveal lack of light reflex on the right side with some clouding of the tympanic membrane. ASSESSMENT AND PLAN: 1. Dizziness, possibly vestibular in nature. The patient is placed on IV antibiotics for suspected right suppurative otitis media. We will convert to p.o. at time of discharge. 2. Dizziness with history of a cerebrovascular accident, for which the patient is on long-term anticoagulants. We will check an MRI and carotid Doppler. If they are negative, the plan is to discharge. 3. Benign hypertension, controlled. The patient does get quite anxious, made a pressure to go up yesterday, but consider increasing medications if the pressures continued to spike. [place], [place] PATIENT HISTORY AND PHYSICAL EXAM NAME: NURYS BOYCE UNIT #: [id number] ROOM: [facility] DOCTOR: EMMANUEL ARELLANO MD BIRTHDATE: [birth year] EMMANUEL ARELLANO MD CM:HISPHYS:PATIENT HISTORY AND PHYSICAL EXAMINATION 1 4 EMMANUEL ARELLANO MD 09/29/18903 interface
[~2018-09-28 16:28] MED LIST changes: -DOXYCYCLINE100 M3 PO; -KLONOPIN0.5 MG PO
[2018-09-28 16:29] VITALS: BP 189/80
[2018-09-28 17:06] LABS: BASO % 0.5 % (0.0-1.0); EOS # 0.1 10*3/uL (0.0-0.4); EOS % 1.1 % (1.0-4.0); HEMATOCRIT 40.7 % (37.0-47.0); HEMOGLOBIN 12.8 g/dl (12.0-16.0); LYMPH # 2.3 10*3/uL (1.3-4.4); LYMPH % 34.7 % (27.0-41.0); MEAN CELL VOLUME 85.9 fl (81.0-99.0); MEAN CORPUSCULAR HGB CONC 31.4 g/dl (33.0-37.0); MEAN PLATELET VOLUME 9.2 fl (9.6-12.3); MONO # 0.4 10*3/uL (0.1-1.0); MONO % 5.3 % (3.0-9.0); NEUT # 3.8 10*3/uL (2.3-7.9); NEUT % 58.1 % (47.0-73.0); PLATELET COUNT AUTOMATED 165 10*3/uL (130-400); RED BLOOD COUNT 4.74 10*6/uL (4.10-5.10); WHITE BLOOD COUNT 6.6 10*3/uL (4.8-10.8)
[2018-09-28 17:19] LABS: ACT PARTIAL THROMBO TIME 38.1 SECONDS (20.8-31.5)
[2018-09-28 17:21] LABS: ALKALINE PHOSPHATASE 87 U/L (45-117); BUN 14 mg/dl (7-24); CHLORIDE 105 mmol/L (98-107); CREATININE 0.68 mg/dL (0.55-1.02); LIPASE 103 U/L (73-393); POTASSIUM 4.2 mmol/L (3.5-5.1); SGOT/AST 21 IU/L (3-35); SGPT/ALT 29 U/L (12-78); SODIUM 139 mmol/L (136-145); TOTAL PROTEIN 7.5 gm/dL (6.4-8.2); TROPONIN I < 0.015 ng/ml (<0.045)
[2018-09-28 17:32] LABS: BILIRUBIN NEGATIVE (NEGATIVE); BLOOD 3+ (NEGATIVE); CLARITY SL CLOUDY (CLEAR); COLOR YELLOW (YELLOW); GLUCOSE NEGATIVE (NEGATIVE); KETONE NEGATIVE (NEGATIVE); LEUKO ESTERASE 1+ (NEGATIVE); NITRITE NEGATIVE (NEGATIVE); SPECIFIC GRAVITY >= 1.030 (1.005-1.030); UROBILINOGEN 0.2 E.U./dl (0.2-1.0)
[2018-09-28 17:45] LABS: BACTERIA 1+; RBC 41-50 rbc/hpf (0-2); WBC 21-30 wbc/hpf (0-5)
[2018-09-28 18:13] VITALS: BP 170/78
[2018-09-28 18:31] VITALS: BP 142/69
[2018-09-28 20:00] VITALS: BP 153/88
[2018-09-28 20:20] VITALS: BP 153/88
[2018-09-28] MEDS ORDERED: KLONOPIN0.5 MG PO (21:06)
[2018-09-29] VITALS: BP 153/76
[2018-09-29 08:00] VITALS: BP 133/66; BP 144/66
[2018-09-29] MEDS ORDERED: DOXYCYCLINE100 M3 PO (08:21)
== END 2018-09-29 14:18 | disposition home or self-care (01) | DRG 312 ==
LOC: ED 16:28 → EDHOLD 18:29 → 4E 18:29
PROVIDERS: Nurse Practitioner Family
DX: R55 Syncope and collapse (principal); N30.01 Acute cystitis with hematuria; I69.351 Hemiplegia and hemiparesis following cerebral infarction affecting right dominant side; H66.41 Suppurative otitis media, unspecified, right ear; I10 Essential (primary) hypertension; E78.2 Mixed hyperlipidemia; F41.1 Generalized anxiety disorder; Z79.01 Long term (current) use of anticoagulants; Z88.0 Allergy status to penicillin; Z88.8 Allergy status to other drugs, medicaments and biological substances; Z82.49 Family history of ischemic heart disease and other diseases of the circulatory system; Z80.9 Family history of malignant neoplasm, unspecified

== ENCOUNTER → 2018-10-09 | Outpatient (CLI) | payer MEDICARE ==
[~2018-10-09] MED LIST changes: +DOXYCYCLINE100 M3 PO; +KLONOPIN0.5 MG PO
[2018-10-09 09:24] LABS: INTERNATIONAL NORM RATIO 3.1 (2.0-3.5)
== END | disposition home or self-care (01) ==
LOC: LAB 08:28
PROVIDERS: Psychiatry & Neurology Neurology
DX: D68.61 Antiphospholipid syndrome (principal); Z79.01 Long term (current) use of anticoagulants

== ENCOUNTER → 2018-11-08 | Outpatient (CLI) | payer MEDICARE ==
[~2018-11-08] MED LIST changes: +DOXYCYCLINE100 MG PO; +PREDNISONE20 M1 PO; +PROAIR HFA8.5 GM INH; +VIBRAMYCIN100 MG PO
[2018-11-08 11:08] LABS: BASO % 0.6 % (0.0-1.0); EOS # 0.1 10*3/uL (0.0-0.4); HEMATOCRIT 41.9 % (37.0-47.0); HEMOGLOBIN 13.4 g/dl (12.0-16.0); LYMPH # 1.8 10*3/uL (1.3-4.4); LYMPH % 26.6 % (27.0-41.0); MEAN CELL VOLUME 86.2 fl (81.0-99.0); MEAN CORPUSCULAR HGB 27.6 pg (27.0-31.0); MEAN PLATELET VOLUME 9.1 fl (9.6-12.3); MONO # 0.4 10*3/uL (0.1-1.0); MONO % 6.3 % (3.0-9.0); NEUT # 4.5 10*3/uL (2.3-7.9); NEUT % 64.9 % (47.0-73.0); PLATELET COUNT AUTOMATED 189 10*3/uL (130-400); RED BLOOD COUNT 4.86 10*6/uL (4.10-5.10); RED CELL DISTRI WIDTH 14.8 % (0-14.5); WHITE BLOOD COUNT 6.9 10*3/uL (4.8-10.8)
[2018-11-08 11:26] LABS: ALKALINE PHOSPHATASE 96 U/L (45-117); BUN 16 mg/dl (7-24); CHLORIDE 104 mmol/L (98-107); CHOLESTEROL 204 mg/dL (<200); CREATININE 0.73 mg/dL (0.55-1.02); HDL CHOLESTEROL 45 mg/dl (40-60); LDL CHOLESTEROL 132 mg/dL (9-159); POTASSIUM 4.6 mmol/L (3.5-5.1); SGOT/AST 16 IU/L (3-35); SGPT/ALT 24 U/L (12-78); SODIUM 140 mmol/L (136-145); TOTAL PROTEIN 7.4 gm/dL (6.4-8.2); TRIGLYCERIDES 136 mg/dl (<150); VLDL CHOLESTEROL 27 mg/dL (6-40)
[2018-11-08 11:28] LABS: INTERNATIONAL NORM RATIO 2.3 (2.0-3.5)
== END | disposition home or self-care (01) ==
LOC: LAB 10:39
PROVIDERS: Internal Medicine
DX: E55.9 Vitamin D deficiency, unspecified (principal); E78.5 Hyperlipidemia, unspecified; F32.9 Major depressive disorder, single episode, unspecified; Z79.01 Long term (current) use of anticoagulants

== ENCOUNTER → 2018-11-14 | Outpatient (CLI) | payer MEDICARE ==
[2018-11-14 14:35] LABS: INTERNATIONAL NORM RATIO 2.5 (2.0-3.5)
== END | disposition home or self-care (01) ==
LOC: LAB 13:23
PROVIDERS: Psychiatry & Neurology Neurology
DX: D68.61 Antiphospholipid syndrome (principal); Z79.01 Long term (current) use of anticoagulants

== ENCOUNTER → 2018-11-22 | Outpatient (CLI) | payer MEDICARE ==
[2018-11-22 15:59] LABS: INTERNATIONAL NORM RATIO 2.9 (2.0-3.5)
== END | disposition home or self-care (01) ==
LOC: LAB 14:55
PROVIDERS: Psychiatry & Neurology Neurology
DX: D68.61 Antiphospholipid syndrome (principal); Z79.01 Long term (current) use of anticoagulants

== ENCOUNTER 2018-11-27 09:21 | Emergency (ER) | payer MEDICARE ==
[~2018-11-27] VITALS: Ht 167.6 cm; Wt 113.4 kg
[~2018-11-27 09:21] MED LIST changes: -DOXYCYCLINE100 MG PO; -PREDNISONE20 M1 PO; -PROAIR HFA8.5 GM INH; -VIBRAMYCIN100 MG PO
[2018-11-27 09:26] VITALS: BP 160/87
[2018-11-27] MEDS ORDERED: VIBRAMYCIN100 MG PO (09:34)
== END 2018-11-27 09:43 | disposition home or self-care (01) ==
LOC: ED 09:21
DX: L02.411 Cutaneous abscess of right axilla (principal); I10 Essential (primary) hypertension; Z86.73 Personal history of transient ischemic attack (TIA), and cerebral infarction without residual deficits; Z86.718 Personal history of other venous thrombosis and embolism; Z79.01 Long term (current) use of anticoagulants; Z88.0 Allergy status to penicillin; Z88.1 Allergy status to other antibiotic agents; Z88.8 Allergy status to other drugs, medicaments and biological substances

== ENCOUNTER → 2018-12-01 | Outpatient (CLI) | payer MEDICARE ==
[~2018-12-01] MED LIST changes: +BUSPIRONE HCL10 MG PO; +DOXYCYCLINE100 MG PO; +PREDNISONE20 M1 PO; +PROAIR HFA8.5 GM INH; +VIBRAMYCIN100 MG PO; +VISTARIL25 MG PO
[2018-12-01 10:43] LABS: INTERNATIONAL NORM RATIO 2.8 (2.0-3.5)
== END | disposition home or self-care (01) ==
LOC: LAB 09:46
PROVIDERS: Psychiatry & Neurology Neurology
DX: D68.61 Antiphospholipid syndrome (principal); Z79.01 Long term (current) use of anticoagulants

== ENCOUNTER 2019-01-04 09:32 | Emergency (ER) | payer MEDICARE ==
[~2019-01-04] VITALS: Ht 162.5 cm; Wt 117.9 kg
[~2019-01-04 09:32] MED LIST changes: -BUSPIRONE HCL10 MG PO; -DOXYCYCLINE100 MG PO; -PREDNISONE20 M1 PO; -PROAIR HFA8.5 GM INH; -VISTARIL25 MG PO
[2019-01-04 09:58] LABS: BASO % 0.4 % (0.0-1.0); EOS # 0.1 10*3/uL (0.0-0.4); EOS % 1.2 % (1.0-4.0); HEMATOCRIT 42.8 % (37.0-47.0); HEMOGLOBIN 13.5 g/dl (12.0-16.0); LYMPH # 1.7 10*3/uL (1.3-4.4); LYMPH % 16.1 % (27.0-41.0); MEAN CELL VOLUME 86.1 fl (81.0-99.0); MEAN CORPUSCULAR HGB 27.2 pg (27.0-31.0); MEAN CORPUSCULAR HGB CONC 31.5 g/dl (33.0-37.0); MEAN PLATELET VOLUME 8.9 fl (9.6-12.3); MONO # 0.5 10*3/uL (0.1-1.0); MONO % 4.4 % (3.0-9.0); NEUT # 8.3 10*3/uL (2.3-7.9); NEUT % 77.6 % (47.0-73.0); PLATELET COUNT AUTOMATED 178 10*3/uL (130-400); RED BLOOD COUNT 4.97 10*6/uL (4.10-5.10); RED CELL DISTRI WIDTH 14.4 % (0-14.5); WHITE BLOOD COUNT 10.7 10*3/uL (4.8-10.8)
[2019-01-04 10:06] LABS: INTERNATIONAL NORM RATIO 3.2 (2.0-3.5)
[2019-01-04 10:24] LABS: ALBUMIN 3.7 gm/dl (3.1-4.5); ALKALINE PHOSPHATASE 102 U/L (45-117); BUN 10 mg/dl (7-24); CHLORIDE 104 mmol/L (98-107); POTASSIUM 4.1 mmol/L (3.5-5.1); SGOT/AST 20 IU/L (3-35); SGPT/ALT 26 U/L (12-78); SODIUM 139 mmol/L (136-145); TOTAL PROTEIN 7.6 gm/dL (6.4-8.2)
[2019-01-04] MEDS ORDERED: PROAIR HFA8.5 GM INH (11:16)
[2019-01-04] MEDS ORDERED: DOXYCYCLINE100 MG PO (11:16)
[2019-01-04] MEDS ORDERED: PREDNISONE20 M1 PO (11:16)
[2019-01-04 11:19] VITALS: BP 162/83
[2019-01-20] MEDS ORDERED: BUSPIRONE HCL10 MG PO (13:54)
[2019-01-20] MEDS ORDERED: VISTARIL25 MG PO (16:13)
== END 2019-01-04 11:19 | disposition home or self-care (01) ==
LOC: ED 09:32
PROVIDERS: Nurse Practitioner Family
DX: J01.90 Acute sinusitis, unspecified (principal); J20.9 Acute bronchitis, unspecified; I10 Essential (primary) hypertension; E78.5 Hyperlipidemia, unspecified; Z79.01 Long term (current) use of anticoagulants; Z88.0 Allergy status to penicillin; Z88.1 Allergy status to other antibiotic agents; Z88.8 Allergy status to other drugs, medicaments and biological substances; Z79.899 Other long term (current) drug therapy

== ENCOUNTER → 2019-01-18 | Outpatient (CLI) | payer MEDICARE ==
[~2019-01-18] MED LIST changes: +BUSPIRONE HCL10 MG PO; +DOXYCYCLINE100 MG PO; +PREDNISONE20 M1 PO; +PROAIR HFA8.5 GM INH; +VISTARIL25 MG PO
[2019-01-18 12:35] LABS: INTERNATIONAL NORM RATIO 2.8 (2.0-3.5)
== END | disposition home or self-care (01) ==
LOC: LAB 10:21
PROVIDERS: Psychiatry & Neurology Neurology
DX: D68.61 Antiphospholipid syndrome (principal); Z79.01 Long term (current) use of anticoagulants

== ENCOUNTER → 2019-02-12 | Outpatient (CLI) | payer MEDICARE ==
[2019-02-12 16:06] LABS: INTERNATIONAL NORM RATIO 3.1 (2.0-3.5)
== END | disposition home or self-care (01) ==
LOC: LAB 15:09
PROVIDERS: Psychiatry & Neurology Neurology
DX: D68.61 Antiphospholipid syndrome (principal); Z79.01 Long term (current) use of anticoagulants

== ENCOUNTER → 2019-02-21 | Outpatient (CLI) | payer MEDICARE ==
[2019-02-21 12:45] LABS: INTERNATIONAL NORM RATIO 2.3 (2.0-3.5)
== END | disposition home or self-care (01) ==
LOC: LAB 12:13
PROVIDERS: Psychiatry & Neurology Neurology
DX: D68.61 Antiphospholipid syndrome (principal); Z79.01 Long term (current) use of anticoagulants

== ENCOUNTER → 2019-03-05 | Outpatient (CLI) | payer MEDICARE | END | disposition home or self-care (01) | LOC: LAB 14:20 | PROVIDERS: Psychiatry & Neurology Neurology | DX: Z79.01 Long term (current) use of anticoagulants (principal); D68.61 Antiphospholipid syndrome ==

== ENCOUNTER → 2019-03-30 | Outpatient (CLI) | payer MEDICARE ==
[2019-03-30 14:36] LABS: INTERNATIONAL NORM RATIO 2.7 (2.0-3.5)
== END | disposition home or self-care (01) ==
LOC: LAB 14:06
PROVIDERS: Psychiatry & Neurology Neurology
DX: Z79.01 Long term (current) use of anticoagulants (principal); D68.61 Antiphospholipid syndrome

== ENCOUNTER → 2019-04-25 | Outpatient (CLI) | payer MEDICARE ==
[2019-04-25 14:47] LABS: INTERNATIONAL NORM RATIO 2.2 (2.0-3.5)
== END | disposition home or self-care (01) ==
LOC: LAB 13:44
PROVIDERS: Psychiatry & Neurology Neurology
DX: Z51.81 Encounter for therapeutic drug level monitoring (principal); Z79.01 Long term (current) use of anticoagulants

== ENCOUNTER 2019-05-18 12:59 | Emergency (ER) | payer MEDICARE ==
[~2019-05-18] VITALS: Ht 162.5 cm; Wt 117.5 kg
[2019-05-18 13:00] VITALS: BP 16/62
[2019-05-18 13:20] LABS: BILIRUBIN NEGATIVE (NEGATIVE); BLOOD 3+ (NEGATIVE); CLARITY CLOUDY (CLEAR); COLOR YELLOW (YELLOW); GLUCOSE NEGATIVE (NEGATIVE); KETONE NEGATIVE (NEGATIVE); LEUKO ESTERASE TRACE (NEGATIVE); NITRITE NEGATIVE (NEGATIVE); PH 5.5 (5.0-9.0); SPECIFIC GRAVITY >= 1.030 (1.005-1.030); UROBILINOGEN 0.2 E.U./dl (0.2-1.0)
[2019-05-18 13:53] LABS: BACTERIA 2+; MUCOUS 2+; RBC TNTC rbc/hpf (0-2)
[2019-05-18] MEDS ORDERED: CIPRO500 MG PO (14:22)
== END 2019-05-18 14:25 | disposition home or self-care (01) ==
LOC: ED 12:59
PROVIDERS: Emergency Medicine
DX: N39.0 Urinary tract infection, site not specified (principal); I10 Essential (primary) hypertension; Z88.0 Allergy status to penicillin; Z91.048 Other nonmedicinal substance allergy status; Z88.8 Allergy status to other drugs, medicaments and biological substances; Z79.899 Other long term (current) drug therapy; Z79.01 Long term (current) use of anticoagulants; Z86.73 Personal history of transient ischemic attack (TIA), and cerebral infarction without residual deficits

== ENCOUNTER → 2019-06-27 | Outpatient (CLI) | payer MEDICARE ==
[2019-06-27 17:11] LABS: INTERNATIONAL NORM RATIO 2.3 (2.0-3.5)
== END | disposition home or self-care (01) ==
LOC: LAB 16:13
PROVIDERS: Psychiatry & Neurology Neurology
DX: Z79.01 Long term (current) use of anticoagulants (principal); D65 Disseminated intravascular coagulation [defibrination syndrome]

== ENCOUNTER → 2019-07-31 | Outpatient (CLI) | payer MEDICARE ==
[2019-07-31 16:56] LABS: INTERNATIONAL NORM RATIO 2.5 (2.0-3.5)
== END | disposition home or self-care (01) ==
LOC: LAB 15:38
PROVIDERS: Psychiatry & Neurology Neurology
DX: D68.61 Antiphospholipid syndrome (principal); Z79.01 Long term (current) use of anticoagulants

== ENCOUNTER → 2019-08-28 | Outpatient (CLI) | payer MEDICARE ==
[2019-08-28 15:04] LABS: INTERNATIONAL NORM RATIO 2.1 (2.0-3.5)
== END | disposition home or self-care (01) ==
LOC: LAB 14:12
PROVIDERS: Psychiatry & Neurology Neurology
DX: D68.61 Antiphospholipid syndrome (principal); Z79.01 Long term (current) use of anticoagulants

== ENCOUNTER → 2019-09-25 | Outpatient (CLI) | payer MEDICARE ==
[2019-09-25 11:49] LABS: INTERNATIONAL NORM RATIO 2.1 (2.0-3.5)
== END | disposition home or self-care (01) ==
LOC: LAB 10:55
DX: D68.61 Antiphospholipid syndrome (principal)

== ENCOUNTER → 2019-10-04 | Outpatient (CLI) | payer MEDICARE ==
[2019-10-04 11:42] LABS: BASO % 0.6 % (0.0-1.0); EOS # 1.2 10*3/uL (0.0-0.4); EOS % 16.9 % (1.0-4.0); HEMATOCRIT 41.6 % (37.0-47.0); HEMOGLOBIN 12.5 g/dl (12.0-16.0); LYMPH # 1.5 10*3/uL (1.3-4.4); LYMPH % 21.6 % (27.0-41.0); MEAN CELL VOLUME 87.9 fl (81.0-99.0); MEAN CORPUSCULAR HGB 26.4 pg (27.0-31.0); MEAN PLATELET VOLUME 9.1 fl (9.6-12.3); MONO # 0.4 10*3/uL (0.1-1.0); MONO % 5.3 % (3.0-9.0); NEUT # 3.8 10*3/uL (2.3-7.9); PLATELET COUNT AUTOMATED 202 10*3/uL (130-400); RED BLOOD COUNT 4.73 10*6/uL (4.10-5.10); RED CELL DISTRI WIDTH 15.4 % (0-14.5)
[2019-10-04 12:28] LABS: ALBUMIN 3.8 gm/dl (3.1-4.5); ALKALINE PHOSPHATASE 121 U/L (45-117); BUN 16 mg/dl (7-24); CHLORIDE 107 mmol/L (98-107); CHOLESTEROL 202 mg/dL (<200); CREATININE 0.78 mg/dL (0.55-1.02); HDL CHOLESTEROL 53 mg/dl (40-60); LDL CHOLESTEROL 124 mg/dL (9-159); POTASSIUM 4.7 mmol/L (3.5-5.1); SGOT/AST 22 IU/L (3-35); SGPT/ALT 25 U/L (12-78); SODIUM 143 mmol/L (136-145); TOTAL PROTEIN 7.5 gm/dL (6.4-8.2); TRIGLYCERIDES 124 mg/dl (<150); VLDL CHOLESTEROL 25 mg/dL (6-40)
[2019-10-04 12:35] LABS: FREE T4 1.11 ng/dl (0.76-1.46)
[2019-10-04 12:51] LABS: VITAMIN D, 25-HYDROXY 21.7 ng/mL (30-100)
== END | disposition home or self-care (01) ==
LOC: LAB 11:21
PROVIDERS: Internal Medicine
DX: Z00.00 Encounter for general adult medical examination without abnormal findings (principal); E55.9 Vitamin D deficiency, unspecified; D51.9 Vitamin B12 deficiency anemia, unspecified; E78.2 Mixed hyperlipidemia; I10 Essential (primary) hypertension

== ENCOUNTER → 2019-10-08 | Outpatient (CLI) | payer MEDICARE | END | disposition home or self-care (01) | LOC: MAMMO 01:34 | DX: Z12.31 Encounter for screening mammogram for malignant neoplasm of breast (principal) ==

== ENCOUNTER → 2019-10-29 | Outpatient (CLI) | payer MEDICARE ==
[2019-10-29 10:07] LABS: INTERNATIONAL NORM RATIO 2.2 (2.0-3.5)
== END | disposition home or self-care (01) ==
LOC: LAB 08:09
PROVIDERS: Psychiatry & Neurology Neurology
DX: D68.61 Antiphospholipid syndrome (principal)

== ENCOUNTER → 2019-11-22 | Outpatient (CLI) | payer MEDICARE ==
[2019-11-22 12:42] LABS: INTERNATIONAL NORM RATIO 2.1 (2.0-3.5)
== END | disposition home or self-care (01) ==
LOC: LAB 11:24
PROVIDERS: Psychiatry & Neurology Neurology
DX: D68.61 Antiphospholipid syndrome (principal)

== ENCOUNTER → 2019-12-28 | Outpatient (CLI) | payer MEDICARE ==
[2019-12-28 13:32] LABS: INTERNATIONAL NORM RATIO 2.1 (2.0-3.5)
== END | disposition home or self-care (01) ==
LOC: LAB 12:40
PROVIDERS: Psychiatry & Neurology Neurology
DX: D68.61 Antiphospholipid syndrome (principal)

== ENCOUNTER → 2020-03-18 | Outpatient (CLI) | payer MEDICARE ==
[2020-03-18 11:49] LABS: INTERNATIONAL NORM RATIO 2.8 (2.0-3.5)
== END | disposition home or self-care (01) ==
LOC: LAB 10:06
PROVIDERS: Psychiatry & Neurology Neurology
DX: D68.61 Antiphospholipid syndrome (principal)

== ENCOUNTER → 2020-04-17 | Outpatient (CLI) | payer MEDICARE ==
[2020-04-17 14:20] LABS: INTERNATIONAL NORM RATIO 2.3 (2.0-3.5)
== END | disposition home or self-care (01) ==
LOC: LAB 13:18
PROVIDERS: Psychiatry & Neurology Neurology
DX: D68.61 Antiphospholipid syndrome (principal)

== ENCOUNTER → 2020-05-26 | Outpatient (CLI) | payer MEDICARE ==
[2020-05-26 12:06] LABS: INTERNATIONAL NORM RATIO 1.9 (2.0-3.5)
== END | disposition home or self-care (01) ==
LOC: LAB 11:15
PROVIDERS: Psychiatry & Neurology Neurology
DX: D68.61 Antiphospholipid syndrome (principal)

== ENCOUNTER → 2020-06-30 | Outpatient (CLI) | payer MEDICARE ==
[2020-06-30 13:29] LABS: INTERNATIONAL NORM RATIO 3.2 (2.0-3.5)
== END | disposition home or self-care (01) ==
LOC: LAB 11:47
PROVIDERS: ATTEND Psychiatry & Neurology Neurology
DX: D68.61 Antiphospholipid syndrome (principal)

== ENCOUNTER → 2020-08-04 | Outpatient (CLI) | payer MEDICARE ==
[2020-08-04 13:47] LABS: INTERNATIONAL NORM RATIO 2.6 (2.0-3.5)
== END | disposition home or self-care (01) ==
LOC: LAB 12:48
PROVIDERS: ATTEND Psychiatry & Neurology Neurology
DX: D68.61 Antiphospholipid syndrome (principal)

== ENCOUNTER → 2020-09-03 | Outpatient (CLI) | payer MEDICARE ==
[2020-09-03 15:01] LABS: INTERNATIONAL NORM RATIO 2.1 (2.0-3.5)
== END | disposition home or self-care (01) ==
LOC: LAB 13:24
PROVIDERS: ATTEND Psychiatry & Neurology Neurology
DX: D68.61 Antiphospholipid syndrome (principal)

== ENCOUNTER → 2020-10-07 | Outpatient (CLI) | payer MEDICARE ==
[2020-10-07 12:07] LABS: INTERNATIONAL NORM RATIO 2.7 (2.0-3.5)
== END | disposition home or self-care (01) ==
LOC: LAB 11:45
PROVIDERS: ATTEND Psychiatry & Neurology Neurology
DX: D68.61 Antiphospholipid syndrome (principal)

== ENCOUNTER → 2020-11-10 | Outpatient (CLI) | payer MEDICARE ==
[2020-11-10 15:40] LABS: INTERNATIONAL NORM RATIO 2.3 (2.0-3.5)
== END | disposition home or self-care (01) ==
LOC: LAB 15:09
PROVIDERS: ATTEND Psychiatry & Neurology Neurology
DX: D68.61 Antiphospholipid syndrome (principal)

== ENCOUNTER → 2020-12-12 | Outpatient (CLI) | payer MEDICARE | END | disposition home or self-care (01) | LOC: LAB 09:03 | PROVIDERS: ATTEND Psychiatry & Neurology Neurology | DX: D68.61 Antiphospholipid syndrome (principal) ==

== ENCOUNTER → 2021-01-20 | Outpatient (CLI) | payer MEDICARE ==
[2021-01-20 13:19] LABS: INTERNATIONAL NORM RATIO 2.5 (2.0-3.5)
== END | disposition home or self-care (01) ==
LOC: LAB 12:39
PROVIDERS: ATTEND Psychiatry & Neurology Neurology
DX: D68.61 Antiphospholipid syndrome (principal)

== ENCOUNTER → 2021-02-23 | Outpatient (CLI) | payer MEDICARE ==
[2021-02-23 14:19] LABS: INTERNATIONAL NORM RATIO 2.2 (2.0-3.5)
== END | disposition home or self-care (01) ==
LOC: LAB 13:33
PROVIDERS: ATTEND Psychiatry & Neurology Neurology
DX: D68.61 Antiphospholipid syndrome (principal)

== ENCOUNTER 2021-03-27 05:53 | Emergency (ER) | payer MEDICARE ==
[2021-03-27] MEDS ORDERED: ASPIRIN ADULT L81 M1 PO (09:44)
[2021-03-27 11:30] LABS: BASO % 0.3 % (0.0-1.0); EOS % 0.1 % (1.0-4.0); HEMATOCRIT 41.1 % (37.0-47.0); LYMPH # 2.3 10*3/uL (1.3-4.4); LYMPH % 16.1 % (27.0-41.0); MEAN CELL VOLUME 83.9 fl (81.0-99.0); MEAN CORPUSCULAR HGB 25.5 pg (27.0-31.0); MEAN CORPUSCULAR HGB CONC 30.4 g/dl (33.0-37.0); MEAN PLATELET VOLUME 9.1 fl (9.6-12.3); MONO # 0.8 10*3/uL (0.1-1.0); MONO % 5.3 % (3.0-9.0); NEUT # 10.9 10*3/uL (2.3-7.9); NEUT % 76.9 % (47.0-73.0); PLATELET COUNT AUTOMATED 180 10*3/uL (130-400); RED CELL DISTRI WIDTH 16.4 % (0-14.5); WHITE BLOOD COUNT 14.2 10*3/uL (4.8-10.8)
[2021-03-27 11:49] LABS: BUN 18 mg/dl (7-24); CHLORIDE 105 mmol/L (98-107); CREATININE 0.89 mg/dL (0.55-1.02); SODIUM 141 mmol/L (136-145)
[2021-03-27 11:50] LABS: ALBUMIN 3.7 gm/dl (3.1-4.5); ALKALINE PHOSPHATASE 99 U/L (45-117); SGOT/AST 20 IU/L (3-35); SGPT/ALT 39 U/L (12-78); TOTAL PROTEIN 7.1 gm/dL (6.4-8.2)
[2021-03-27 17:00] VITALS: BP 153/66
== END 2021-03-27 19:25 ==
LOC: ED 05:53
PROVIDERS: Family Medicine
DX: I63.9 Cerebral infarction, unspecified (principal); Z88.0 Allergy status to penicillin; Z88.8 Allergy status to other drugs, medicaments and biological substances; Z79.899 Other long term (current) drug therapy; Z98.890 Other specified postprocedural states

== ENCOUNTER → 2021-04-17 | Outpatient (CLI) | payer MEDICARE ==
[~2021-04-17] MED LIST changes: +ASPIRIN ADULT L81 M1 PO
[2021-04-17 10:34] LABS: INTERNATIONAL NORM RATIO 2.2 (2.0-3.5)
== END | disposition home or self-care (01) ==
LOC: LAB 09:21
PROVIDERS: ATTEND Physical Medicine & Rehabilitation
DX: I63.9 Cerebral infarction, unspecified (principal)

== ENCOUNTER → 2021-04-20 | Outpatient (CLI) | payer MEDICARE ==
[2021-04-20 08:45] LABS: BASO % 0.6 % (0.0-1.0); EOS # 0.2 10*3/uL (0.0-0.4); EOS % 3.3 % (1.0-4.0); HEMATOCRIT 31.5 % (37.0-47.0); LYMPH # 1.2 10*3/uL (1.3-4.4); LYMPH % 22.6 % (27.0-41.0); MEAN CELL VOLUME 90.8 fl (81.0-99.0); MEAN CORPUSCULAR HGB 26.8 pg (27.0-31.0); MEAN CORPUSCULAR HGB CONC 29.5 g/dl (33.0-37.0); MEAN PLATELET VOLUME 9.1 fl (9.6-12.3); MONO # 0.3 10*3/uL (0.1-1.0); MONO % 5.4 % (3.0-9.0); NEUT # 3.7 10*3/uL (2.3-7.9); NEUT % 67.9 % (47.0-73.0); PLATELET COUNT AUTOMATED 231 10*3/uL (130-400); RED BLOOD COUNT 3.47 10*6/uL (4.10-5.10); RED CELL DISTRI WIDTH 19.8 % (0-14.5); WHITE BLOOD COUNT 5.4 10*3/uL (4.8-10.8)
[2021-04-20 08:56] LABS: INTERNATIONAL NORM RATIO 2.5 (2.0-3.5)
[2021-04-20 09:12] LABS: BUN 13 mg/dl (7-24); CHLORIDE 109 mmol/L (98-107); CREATININE 0.82 mg/dL (0.55-1.02); POTASSIUM 3.6 mmol/L (3.5-5.1); SODIUM 144 mmol/L (136-145)
== END | disposition home or self-care (01) ==
LOC: LAB 08:14
PROVIDERS: ATTEND Physical Medicine & Rehabilitation
DX: I63.9 Cerebral infarction, unspecified (principal)

== ENCOUNTER → 2021-04-22 | Outpatient (CLI) | payer MEDICARE ==
[2021-04-22 09:18] LABS: INTERNATIONAL NORM RATIO 2.7 (2.0-3.5)
== END | disposition home or self-care (01) ==
LOC: LAB 00:24
PROVIDERS: ATTEND Physical Medicine & Rehabilitation
DX: I63.9 Cerebral infarction, unspecified (principal)

== ENCOUNTER → 2022-01-26 | Outpatient (CLI) | payer MEDICARE | END | disposition home or self-care (01) | LOC: LAB 08:23 | PROVIDERS: ATTEND Internal Medicine | DX: Z79.01 Long term (current) use of anticoagulants (principal) ==

== ENCOUNTER → 2022-02-17 | Outpatient (CLI) | payer MEDICARE ==
[2022-02-17 16:52] LABS: INTERNATIONAL NORM RATIO 2.6 (2.0-3.5)
== END | disposition home or self-care (01) ==
LOC: LAB 16:20
PROVIDERS: ATTEND Internal Medicine
DX: Z79.01 Long term (current) use of anticoagulants (principal)

== ENCOUNTER → 2022-03-03 | Outpatient (CLI) | payer MEDICARE ==
[2022-03-03 14:45] LABS: INTERNATIONAL NORM RATIO 3.3 (2.0-3.5)
== END | disposition home or self-care (01) ==
LOC: LAB 14:16
PROVIDERS: ATTEND Internal Medicine
DX: Z79.01 Long term (current) use of anticoagulants (principal)

== ENCOUNTER → 2022-03-05 | Outpatient (CLI) | payer MEDICARE ==
[2022-03-05 17:37] LABS: INTERNATIONAL NORM RATIO 2.2 (2.0-3.5)
== END | disposition home or self-care (01) ==
LOC: LAB 16:50
PROVIDERS: ATTEND Internal Medicine
DX: Z79.01 Long term (current) use of anticoagulants (principal)

== ENCOUNTER → 2022-03-17 | Outpatient (CLI) | payer MEDICARE | END | disposition home or self-care (01) | LOC: LAB 13:50 | PROVIDERS: ATTEND Internal Medicine | DX: Z79.01 Long term (current) use of anticoagulants (principal) ==

== ENCOUNTER → 2022-03-25 | Outpatient (CLI) | payer MEDICARE ==
[2022-03-25 15:08] LABS: INTERNATIONAL NORM RATIO 3.1 (2.0-3.5)
== END | disposition home or self-care (01) ==
LOC: LAB 14:19
PROVIDERS: ATTEND Internal Medicine
DX: Z79.01 Long term (current) use of anticoagulants (principal)

== ENCOUNTER → 2022-04-01 | Outpatient (CLI) | payer MEDICARE ==
[2022-04-01 14:05] LABS: INTERNATIONAL NORM RATIO 1.9 (2.0-3.5)
== END | disposition home or self-care (01) ==
LOC: LAB 13:25
PROVIDERS: ATTEND Internal Medicine
DX: Z79.01 Long term (current) use of anticoagulants (principal)

== ENCOUNTER → 2022-04-08 | Outpatient (CLI) | payer MEDICARE | END | disposition home or self-care (01) | LOC: LAB 11:42 | PROVIDERS: ATTEND Internal Medicine | DX: Z79.01 Long term (current) use of anticoagulants (principal) ==

== ENCOUNTER → 2022-04-20 | Outpatient (CLI) | payer MEDICARE ==
[2022-04-20 13:12] LABS: INTERNATIONAL NORM RATIO 2.1 (2.0-3.5)
== END | disposition home or self-care (01) ==
LOC: LAB 12:48
PROVIDERS: ATTEND Internal Medicine
DX: Z79.01 Long term (current) use of anticoagulants (principal)

== ENCOUNTER → 2022-05-05 | Outpatient (CLI) | payer MEDICARE ==
[2022-05-05 13:43] LABS: INTERNATIONAL NORM RATIO 1.7 (2.0-3.5)
== END | disposition home or self-care (01) ==
LOC: LAB 13:17 → RAD 14:00 → MAMMO 14:30
PROVIDERS: ATTEND Internal Medicine
DX: Z12.31 Encounter for screening mammogram for malignant neoplasm of breast (principal); M85.88 Other specified disorders of bone density and structure, other site; Z79.01 Long term (current) use of anticoagulants; Z78.0 Asymptomatic menopausal state

== ENCOUNTER → 2022-05-13 | Outpatient (CLI) | payer MEDICARE ==
[2022-05-13 09:53] LABS: INTERNATIONAL NORM RATIO 2.1 (2.0-3.5)
== END | disposition home or self-care (01) ==
LOC: LAB 09:07
PROVIDERS: ATTEND Internal Medicine
DX: Z79.01 Long term (current) use of anticoagulants (principal)

== ENCOUNTER → 2022-05-27 | Outpatient (CLI) | payer MEDICARE ==
[2022-05-27 10:23] LABS: INTERNATIONAL NORM RATIO 2.4 (2.0-3.5)
== END | disposition home or self-care (01) ==
LOC: LAB 09:48
PROVIDERS: ATTEND Internal Medicine
DX: D68.8 Other specified coagulation defects (principal); Z79.01 Long term (current) use of anticoagulants

== ENCOUNTER → 2022-06-10 | Outpatient (CLI) | payer MEDICARE | END | disposition home or self-care (01) | LOC: LAB 18:12 | PROVIDERS: ATTEND Internal Medicine | DX: D68.8 Other specified coagulation defects (principal); Z79.01 Long term (current) use of anticoagulants ==

== ENCOUNTER → 2022-06-24 | Outpatient (CLI) | payer MEDICARE ==
[2022-06-24 09:36] LABS: INTERNATIONAL NORM RATIO 3.2 (2.0-3.5)
== END | disposition home or self-care (01) ==
LOC: LAB 09:03
PROVIDERS: ATTEND Internal Medicine
DX: D68.8 Other specified coagulation defects (principal); Z79.01 Long term (current) use of anticoagulants

== ENCOUNTER → 2022-07-08 | Outpatient (CLI) | payer MEDICARE ==
[2022-07-08 15:45] LABS: INTERNATIONAL NORM RATIO 2.7 (2.0-3.5)
== END | disposition home or self-care (01) ==
LOC: LAB 15:05
PROVIDERS: ATTEND Internal Medicine
DX: Z79.01 Long term (current) use of anticoagulants (principal)

== ENCOUNTER → 2022-07-14 | Outpatient (CLI) | payer MEDICARE | END | disposition home or self-care (01) | LOC: RESCLI 02:08 | PROVIDERS: ATTEND Emergency Medicine | DX: M85.80 Other specified disorders of bone density and structure, unspecified site (principal); E78.5 Hyperlipidemia, unspecified; M10.9 Gout, unspecified; E03.9 Hypothyroidism, unspecified; I10 Essential (primary) hypertension; K21.9 Gastro-esophageal reflux disease without esophagitis; F32.9 Major depressive disorder, single episode, unspecified; I38 Endocarditis, valve unspecified; Z86.73 Personal history of transient ischemic attack (TIA), and cerebral infarction without residual deficits; Z88.0 Allergy status to penicillin; Z88.8 Allergy status to other drugs, medicaments and biological substances; Z87.891 Personal history of nicotine dependence; Z79.82 Long term (current) use of aspirin; Z79.899 Other long term (current) drug therapy ==

== ENCOUNTER → 2022-07-21 | Outpatient (CLI) | payer MEDICARE ==
[2022-07-21 17:47] LABS: INTERNATIONAL NORM RATIO 2.3 (2.0-3.5)
== END | disposition home or self-care (01) ==
LOC: LAB 17:09
PROVIDERS: ATTEND Internal Medicine
DX: D68.8 Other specified coagulation defects (principal); Z79.01 Long term (current) use of anticoagulants

== ENCOUNTER → 2022-08-11 | Outpatient (CLI) | payer MEDICARE ==
[2022-08-11 13:20] LABS: INTERNATIONAL NORM RATIO 2.8 (2.0-3.5)
== END | disposition home or self-care (01) ==
LOC: LAB 12:41
PROVIDERS: ATTEND Internal Medicine
DX: Z79.01 Long term (current) use of anticoagulants (principal)

== ENCOUNTER → 2022-09-02 | Outpatient (CLI) | payer MEDICARE ==
[2022-09-02 16:53] LABS: INTERNATIONAL NORM RATIO 4.4 (2.0-3.5)
== END ==
LOC: LAB 16:09
PROVIDERS: ATTEND Internal Medicine
DX: D68.8 Other specified coagulation defects (principal); Z79.01 Long term (current) use of anticoagulants

== ENCOUNTER → 2022-09-03 | Outpatient (CLI) | payer MEDICARE ==
[2022-09-03 17:14] LABS: INTERNATIONAL NORM RATIO 4.4 (2.0-3.5)
== END ==
LOC: LAB 16:36
PROVIDERS: ATTEND Internal Medicine
DX: D68.8 Other specified coagulation defects (principal); Z79.01 Long term (current) use of anticoagulants

== ENCOUNTER → 2022-09-04 | Outpatient (CLI) | payer MEDICARE ==
[2022-09-04 09:03] LABS: INTERNATIONAL NORM RATIO 3.2 (2.0-3.5)
== END ==
LOC: LAB 00:24
PROVIDERS: ATTEND Internal Medicine
DX: D68.8 Other specified coagulation defects (principal); Z79.01 Long term (current) use of anticoagulants

== ENCOUNTER → 2022-09-07 | Outpatient (CLI) | payer MEDICARE ==
[2022-09-07 11:43] LABS: INTERNATIONAL NORM RATIO 2.2 (2.0-3.5)
== END ==
LOC: LAB 10:50
PROVIDERS: ATTEND Internal Medicine
DX: D68.8 Other specified coagulation defects (principal); Z79.01 Long term (current) use of anticoagulants

== ENCOUNTER → 2022-09-16 | Outpatient (CLI) | payer MEDICARE | END | disposition home or self-care (01) | LOC: LAB 15:47 | PROVIDERS: ATTEND Internal Medicine | DX: D68.8 Other specified coagulation defects (principal); Z79.01 Long term (current) use of anticoagulants ==

== ENCOUNTER → 2022-10-05 | Outpatient (CLI) | payer MEDICARE ==
[2022-10-05 17:40] LABS: INTERNATIONAL NORM RATIO 2.2 (2.0-3.5)
== END | disposition home or self-care (01) ==
LOC: LAB 16:43
PROVIDERS: ATTEND Internal Medicine
DX: D68.8 Other specified coagulation defects (principal); Z79.01 Long term (current) use of anticoagulants

== ENCOUNTER → 2022-10-21 | Outpatient (CLI) | payer MEDICARE ==
[2022-10-21 14:29] LABS: INTERNATIONAL NORM RATIO 3.5 (2.0-3.5)
== END | disposition home or self-care (01) ==
LOC: LAB 01:06
PROVIDERS: ATTEND Internal Medicine
DX: Z79.01 Long term (current) use of anticoagulants (principal)

== ENCOUNTER → 2022-11-06 | Outpatient (CLI) | payer MEDICARE ==
[2022-11-06 09:27] LABS: INTERNATIONAL NORM RATIO 2.5 (2.0-3.5)
== END | disposition home or self-care (01) ==
LOC: LAB 00:08
PROVIDERS: ATTEND Internal Medicine
DX: Z79.01 Long term (current) use of anticoagulants (principal)

== ENCOUNTER → 2022-11-18 | Outpatient (CLI) | payer MEDICARE ==
[2022-11-18 15:15] LABS: INTERNATIONAL NORM RATIO 2.7 (2.0-3.5)
== END | disposition home or self-care (01) ==
LOC: LAB 03:12
PROVIDERS: ATTEND Internal Medicine
DX: Z79.01 Long term (current) use of anticoagulants (principal)

== ENCOUNTER → 2022-12-09 | Outpatient (CLI) | payer MEDICARE ==
[2022-12-09 09:18] LABS: BASO % 0.6 % (0.0-1.0); EOS # 0.2 10*3/uL (0.0-0.4); EOS % 2.3 % (1.0-4.0); HEMATOCRIT 37.1 % (37.0-47.0); LYMPH # 2.1 10*3/uL (1.3-4.4); LYMPH % 31.6 % (27.0-41.0); MEAN CELL VOLUME 83.6 fl (81.0-99.0); MEAN CORPUSCULAR HGB CONC 29.9 g/dl (33.0-37.0); MEAN PLATELET VOLUME 9.4 fl (9.6-12.3); MONO # 0.3 10*3/uL (0.1-1.0); MONO % 5.2 % (3.0-9.0); NEUT # 3.9 10*3/uL (2.3-7.9); NEUT % 59.7 % (47.0-73.0); PLATELET COUNT AUTOMATED 220 10*3/uL (130-400); RED BLOOD COUNT 4.44 10*6/uL (4.10-5.10); WHITE BLOOD COUNT 6.6 10*3/uL (4.8-10.8)
[2022-12-09 09:41] LABS: ALKALINE PHOSPHATASE 124 U/L (46-116); BUN 15 mg/dl (9-23); CHLORIDE 105 mmol/L (98-107); CHOLESTEROL 111 mg/dL (<200); LDL CHOLESTEROL 51 mg/dL (9-159); POTASSIUM 3.8 mmol/L (3.4-5.1); SGPT/ALT 16 U/L (10-49); THYROID STIM HORMONE (HS) 7.094 uIU/ml (0.550-4.780); TOTAL PROTEIN 6.6 gm/dL (6.0-8.0); TRIGLYCERIDES 106 mg/dl (<150)
[2022-12-09 10:20] LABS: VITAMIN D, 25-HYDROXY 21.5 ng/mL (30-100)
== END | disposition home or self-care (01) ==
LOC: LAB 00:58
PROVIDERS: ATTEND Internal Medicine
DX: I10 Essential (primary) hypertension (principal); E83.52 Hypercalcemia; D51.9 Vitamin B12 deficiency anemia, unspecified; Z13.89 Encounter for screening for other disorder; Z13.820 Encounter for screening for osteoporosis; Z13.0 Encounter for screening for diseases of the blood and blood-forming organs and certain disorders involving the immune mechanism; Z13.6 Encounter for screening for cardiovascular disorders; Z13.1 Encounter for screening for diabetes mellitus; Z13.21 Encounter for screening for nutritional disorder; Z13.220 Encounter for screening for lipoid disorders; Z13.228 Encounter for screening for other metabolic disorders; Z13.9 Encounter for screening, unspecified

== ENCOUNTER → 2023-01-11 | Outpatient (CLI) | payer MEDICARE ==
[2023-01-11 08:55] LABS: INTERNATIONAL NORM RATIO 3.3 (2.0-3.5)
== END | disposition home or self-care (01) ==
LOC: US 12-09 15:30 → LAB 00:28 → US 07:30
PROVIDERS: ATTEND Internal Medicine
DX: I65.23 Occlusion and stenosis of bilateral carotid arteries (principal); I70.203 Unspecified atherosclerosis of native arteries of extremities, bilateral legs; Z79.01 Long term (current) use of anticoagulants

== ENCOUNTER → 2023-01-14 | Outpatient (CLI) | payer MEDICARE ==
[2023-01-14 18:07] LABS: INTERNATIONAL NORM RATIO 2.3 (2.0-3.5)
== END | disposition home or self-care (01) ==
LOC: LAB 00:15
PROVIDERS: ATTEND Internal Medicine
DX: Z79.01 Long term (current) use of anticoagulants (principal)

== ENCOUNTER → 2023-02-17 | Outpatient (CLI) | payer MEDICARE ==
[2023-02-17 12:08] LABS: INTERNATIONAL NORM RATIO 2.7 (2.0-3.5)
== END | disposition home or self-care (01) ==
LOC: LAB 00:22
PROVIDERS: ATTEND Internal Medicine
DX: Z79.01 Long term (current) use of anticoagulants (principal)

== ENCOUNTER → 2023-03-11 | Outpatient (CLI) | payer MEDICARE ==
[2023-03-11 15:30] LABS: INTERNATIONAL NORM RATIO 2.4 (2.0-3.5)
== END | disposition home or self-care (01) ==
LOC: LAB 14:43
PROVIDERS: ATTEND Internal Medicine
DX: Z79.01 Long term (current) use of anticoagulants (principal)

== ENCOUNTER → 2023-04-08 | Outpatient (CLI) | payer MEDICARE ==
[2023-04-08 17:55] LABS: INTERNATIONAL NORM RATIO 2.8 (2.0-3.5)
== END | disposition home or self-care (01) ==
LOC: LAB 01:15
PROVIDERS: ATTEND Internal Medicine
DX: Z79.01 Long term (current) use of anticoagulants (principal)

== ENCOUNTER → 2023-04-30 | Outpatient (CLI) | payer MEDICARE ==
[2023-04-30 09:49] LABS: INTERNATIONAL NORM RATIO 3.3 (2.0-3.5)
== END | disposition home or self-care (01) ==
LOC: LAB 02:58
PROVIDERS: ATTEND Internal Medicine
DX: Z79.01 Long term (current) use of anticoagulants (principal)

== ENCOUNTER → 2023-05-09 | Outpatient (CLI) | payer MEDICARE ==
[2023-05-09 10:59] LABS: INTERNATIONAL NORM RATIO 2.7 (2.0-3.5)
== END | disposition home or self-care (01) ==
LOC: LAB 01:11
PROVIDERS: ATTEND Internal Medicine
DX: Z79.01 Long term (current) use of anticoagulants (principal)

== ENCOUNTER → 2023-05-27 | Outpatient (CLI) | payer MEDICARE | END | disposition home or self-care (01) | LOC: LAB 09:28 | PROVIDERS: ATTEND Internal Medicine | DX: Z79.01 Long term (current) use of anticoagulants (principal) ==

== ENCOUNTER → 2023-06-08 | Outpatient (CLI) | payer MEDICARE ==
[2023-06-08 13:03] LABS: INTERNATIONAL NORM RATIO 3.2 (2.0-3.5)
== END | disposition home or self-care (01) ==
LOC: LAB 01:06
PROVIDERS: ATTEND Internal Medicine
DX: Z79.01 Long term (current) use of anticoagulants (principal)

== ENCOUNTER → 2023-06-22 | Outpatient (CLI) | payer MEDICARE ==
[2023-06-22 11:21] LABS: INTERNATIONAL NORM RATIO 2.6 (2.0-3.5)
== END | disposition short-term general hospital (02) ==
LOC: LAB 02:18
PROVIDERS: ATTEND Internal Medicine
DX: Z79.01 Long term (current) use of anticoagulants (principal)

== ENCOUNTER → 2023-07-15 | Outpatient (CLI) | payer MEDICARE ==
[2023-07-15 17:38] LABS: INTERNATIONAL NORM RATIO 2.5 (2.0-3.5)
== END | disposition home or self-care (01) ==
LOC: LAB 00:12
PROVIDERS: ATTEND Internal Medicine
DX: Z79.01 Long term (current) use of anticoagulants (principal)

== ENCOUNTER → 2023-08-08 | Outpatient (CLI) | payer MEDICARE | END | disposition home or self-care (01) | LOC: RESCLI 00:45 | PROVIDERS: ATTEND Internal Medicine | DX: E78.5 Hyperlipidemia, unspecified (principal); M10.9 Gout, unspecified; I10 Essential (primary) hypertension; K21.9 Gastro-esophageal reflux disease without esophagitis; F32.9 Major depressive disorder, single episode, unspecified; E03.9 Hypothyroidism, unspecified; E63.9 Nutritional deficiency, unspecified; Z86.73 Personal history of transient ischemic attack (TIA), and cerebral infarction without residual deficits; Z88.0 Allergy status to penicillin; Z88.8 Allergy status to other drugs, medicaments and biological substances; Z79.01 Long term (current) use of anticoagulants; Z79.899 Other long term (current) drug therapy ==

== ENCOUNTER → 2023-08-15 | Outpatient (CLI) | payer MEDICARE | END | disposition home or self-care (01) | LOC: LAB 03:16 | PROVIDERS: ATTEND Internal Medicine | DX: I65.23 Occlusion and stenosis of bilateral carotid arteries (principal) ==

== ENCOUNTER → 2023-08-18 | Outpatient (CLI) | payer MEDICARE | END | disposition home or self-care (01) | LOC: CT 00:33 | PROVIDERS: ATTEND Internal Medicine | DX: I65.23 Occlusion and stenosis of bilateral carotid arteries (principal) ==

== ENCOUNTER → 2023-08-31 | Outpatient (CLI) | payer MEDICARE | END | disposition home or self-care (01) | LOC: LAB 00:22 | PROVIDERS: ATTEND Internal Medicine | DX: Z13.0 Encounter for screening for diseases of the blood and blood-forming organs and certain disorders involving the immune mechanism (principal); Z13.1 Encounter for screening for diabetes mellitus; Z13.21 Encounter for screening for nutritional disorder; Z13.220 Encounter for screening for lipoid disorders; Z13.228 Encounter for screening for other metabolic disorders; Z13.6 Encounter for screening for cardiovascular disorders; Z13.89 Encounter for screening for other disorder; R53.81 Other malaise; R79.89 Other specified abnormal findings of blood chemistry; E55.9 Vitamin D deficiency, unspecified; D51.9 Vitamin B12 deficiency anemia, unspecified ==

== ENCOUNTER → 2023-09-02 | Outpatient (CLI) | payer MEDICARE ==
[2023-09-02 18:21] LABS: INTERNATIONAL NORM RATIO 2.6 (2.0-3.5)
== END | disposition home or self-care (01) ==
LOC: LAB 00:38
PROVIDERS: ATTEND Internal Medicine
DX: Z79.01 Long term (current) use of anticoagulants (principal)

== ENCOUNTER → 2023-09-30 | Outpatient (CLI) | payer MEDICARE | END | disposition home or self-care (01) | LOC: LAB 03:26 | PROVIDERS: ATTEND Internal Medicine | DX: Z79.01 Long term (current) use of anticoagulants (principal) ==

== ENCOUNTER → 2023-11-08 | Outpatient (CLI) | payer MEDICARE | END | disposition home or self-care (01) | LOC: LAB 01:06 | PROVIDERS: ATTEND Internal Medicine | DX: Z79.01 Long term (current) use of anticoagulants (principal) ==

== ENCOUNTER → 2023-11-18 | Outpatient (CLI) | payer MEDICARE | END | disposition home or self-care (01) | LOC: LAB 02:49 | PROVIDERS: ATTEND Internal Medicine | DX: Z79.01 Long term (current) use of anticoagulants (principal) ==

== ENCOUNTER → 2023-12-21 | Outpatient (CLI) | payer MEDICARE | END | disposition home or self-care (01) | LOC: LAB 16:06 | PROVIDERS: ATTEND Internal Medicine | DX: Z79.01 Long term (current) use of anticoagulants (principal) ==

== ENCOUNTER → 2024-01-18 | Outpatient (CLI) | payer MEDICARE | END | disposition home or self-care (01) | LOC: LAB 01:49 | PROVIDERS: ATTEND Internal Medicine | DX: Z79.01 Long term (current) use of anticoagulants (principal) ==

== ENCOUNTER → 2024-02-14 | Outpatient (CLI) | payer MEDICARE | END | disposition home or self-care (01) | LOC: LAB 01:53 | PROVIDERS: ATTEND Internal Medicine | DX: Z79.01 Long term (current) use of anticoagulants (principal) ==

== ENCOUNTER → 2024-03-12 | Outpatient (CLI) | payer MEDICARE | END | disposition home or self-care (01) | LOC: MAMMO 01:18 | PROVIDERS: ATTEND Internal Medicine | DX: Z12.31 Encounter for screening mammogram for malignant neoplasm of breast (principal) ==

== ENCOUNTER → 2024-04-03 | Outpatient (CLI) | payer MEDICARE | END | disposition home or self-care (01) | LOC: LAB 07:43 | PROVIDERS: ATTEND Internal Medicine | DX: Z79.01 Long term (current) use of anticoagulants (principal) ==

== ENCOUNTER → 2024-04-19 | Outpatient (CLI) | payer MEDICARE | END | disposition home or self-care (01) | LOC: LAB 00:29 | PROVIDERS: ATTEND Internal Medicine | DX: Z79.01 Long term (current) use of anticoagulants (principal) ==

== ENCOUNTER → 2024-05-19 | Outpatient (CLI) | payer MEDICARE | END | disposition home or self-care (01) | LOC: LAB 00:41 | PROVIDERS: ATTEND Internal Medicine | DX: Z79.01 Long term (current) use of anticoagulants (principal) ==

== ENCOUNTER → 2024-06-12 | Outpatient (CLI) | payer MEDICARE | END | disposition home or self-care (01) | LOC: LAB 02:19 | PROVIDERS: ATTEND Internal Medicine | DX: Z79.01 Long term (current) use of anticoagulants (principal) ==

== ENCOUNTER → 2024-06-26 | Outpatient (CLI) | payer MEDICARE | END | disposition home or self-care (01) | LOC: LAB 02:24 | PROVIDERS: ATTEND Internal Medicine | DX: Z79.01 Long term (current) use of anticoagulants (principal) ==

== ENCOUNTER → 2024-07-20 | Outpatient (CLI) | payer MEDICARE | END | disposition home or self-care (01) | LOC: LAB 02:25 | PROVIDERS: ATTEND Internal Medicine | DX: Z79.01 Long term (current) use of anticoagulants (principal) ==

== ENCOUNTER → 2024-08-03 | Outpatient (CLI) | payer MEDICARE | END | disposition home or self-care (01) | LOC: LAB 00:46 | PROVIDERS: ATTEND Internal Medicine | DX: Z51.81 Encounter for therapeutic drug level monitoring (principal); Z79.01 Long term (current) use of anticoagulants ==

== ENCOUNTER → 2024-08-17 | Outpatient (CLI) | payer MEDICARE | END | disposition home or self-care (01) | LOC: LAB 01:15 | PROVIDERS: ATTEND Internal Medicine | DX: Z51.81 Encounter for therapeutic drug level monitoring (principal); Z79.01 Long term (current) use of anticoagulants ==

== ENCOUNTER → 2024-09-04 | Outpatient (CLI) | payer MEDICARE | END | disposition home or self-care (01) | LOC: EDSTATUS 03:43 → LAB 03:43 | PROVIDERS: ATTEND Internal Medicine | DX: Z51.81 Encounter for therapeutic drug level monitoring (principal); Z79.01 Long term (current) use of anticoagulants ==

== ENCOUNTER → 2024-10-11 | Outpatient (CLI) | payer MEDICARE | END | disposition home or self-care (01) | LOC: LAB 00:29 | PROVIDERS: ATTEND Internal Medicine | DX: Z51.81 Encounter for therapeutic drug level monitoring (principal); Z79.01 Long term (current) use of anticoagulants ==

== ENCOUNTER → 2024-11-14 | Outpatient (CLI) | payer MEDICARE | END | disposition home or self-care (01) | LOC: LAB 01:32 | PROVIDERS: ATTEND Internal Medicine | DX: Z79.01 Long term (current) use of anticoagulants (principal) ==

== ENCOUNTER → 2024-11-27 | Outpatient (CLI) | payer MEDICARE | END | disposition home or self-care (01) | LOC: LAB 01:40 | PROVIDERS: ATTEND Internal Medicine | DX: Z79.01 Long term (current) use of anticoagulants (principal) ==

== ENCOUNTER → 2024-12-20 | Outpatient (CLI) | payer MEDICARE | END | disposition home or self-care (01) | LOC: LAB 00:33 | PROVIDERS: ATTEND Internal Medicine | DX: Z51.81 Encounter for therapeutic drug level monitoring (principal); Z79.01 Long term (current) use of anticoagulants ==

== ENCOUNTER → 2025-01-01 | Outpatient (CLI) | payer MEDICARE | END | disposition home or self-care (01) | LOC: LAB 01:26 | PROVIDERS: ATTEND Internal Medicine | DX: Z51.81 Encounter for therapeutic drug level monitoring (principal); Z79.01 Long term (current) use of anticoagulants ==

== ENCOUNTER → 2025-01-17 | Outpatient (CLI) | payer MEDICARE | END | disposition home or self-care (01) | LOC: RAD 02:56 | PROVIDERS: ATTEND Internal Medicine | DX: R06.02 Shortness of breath (principal); R05.9 Cough, unspecified; R09.89 Other specified symptoms and signs involving the circulatory and respiratory systems; I10 Essential (primary) hypertension ==

== ENCOUNTER → 2025-01-22 | Outpatient (CLI) | payer MEDICARE ==
[2025-01-22 07:55] LABS: BASO % 0.4 % (0.0-1.0); EOS # 0.2 10*3/uL (0.0-0.4); EOS % 2.7 % (1.0-4.0); HEMATOCRIT 38.4 % (37.0-47.0); MEAN CELL VOLUME 81.9 fl (81.0-99.0); MEAN CORPUSCULAR HGB 24.7 pg (27.0-31.0); MEAN CORPUSCULAR HGB CONC 30.2 g/dl (33.0-37.0); MEAN PLATELET VOLUME 8.7 fl (9.6-12.3); MONO # 0.4 10*3/uL (0.1-1.0); MONO % 5.7 % (3.0-9.0); NEUT # 4.7 10*3/uL (2.3-7.9); NEUT % 60.5 % (47.0-73.0); PLATELET COUNT AUTOMATED 261 10*3/uL (130-400); RED BLOOD COUNT 4.69 10*6/uL (4.10-5.10); RED CELL DISTRI WIDTH 17.2 % (0-14.5); WHITE BLOOD COUNT 7.8 10*3/uL (4.8-10.8)
[2025-01-22 08:27] LABS: ALKALINE PHOSPHATASE 123 U/L (46-116); BUN 16 mg/dl (9-23); CHLORIDE 105 mmol/L (98-107); CHOLESTEROL 122 mg/dL (<200); FREE T4 1.36 ng/dl (0.89-1.76); LDL CHOLESTEROL 56 mg/dL (9-159); POTASSIUM 4.2 mmol/L (3.4-5.1); SGPT/ALT 15 U/L (5-49); TOTAL PROTEIN 7.2 gm/dL (6.0-8.0); TRIGLYCERIDES 95 mg/dl (<150)
== END | disposition home or self-care (01) ==
LOC: LAB 07:33
PROVIDERS: ATTEND Internal Medicine
DX: Z51.81 Encounter for therapeutic drug level monitoring (principal); I10 Essential (primary) hypertension; E03.9 Hypothyroidism, unspecified; Z79.01 Long term (current) use of anticoagulants; D51.9 Vitamin B12 deficiency anemia, unspecified; R73.9 Hyperglycemia, unspecified; R53.83 Other fatigue; E53.9 Vitamin B deficiency, unspecified; E55.9 Vitamin D deficiency, unspecified

== ENCOUNTER → 2025-02-14 | Outpatient (CLI) | payer MEDICARE | END | disposition home or self-care (01) | LOC: LAB 00:12 | PROVIDERS: ATTEND Internal Medicine | DX: Z13.0 Encounter for screening for diseases of the blood and blood-forming organs and certain disorders involving the immune mechanism (principal); Z13.1 Encounter for screening for diabetes mellitus; Z79.01 Long term (current) use of anticoagulants; D51.9 Vitamin B12 deficiency anemia, unspecified ==

== ENCOUNTER → 2025-02-26 | Outpatient (CLI) | payer MEDICARE ==
[~2025-02-26] MED LIST changes: +ALLOPURINOL100 MG PO; +ATORVASTATIN CA80 M1 PO; +CARDIZEM120 MG PO; +LEVOTHYROXINE75 MCG PO; +LORAZEPAM0.5 M1 PO; +NA FERRIC GLUC CMPL/SUCROSE 62.5 MG/5 ML VIAL IV SCH
== END | disposition home or self-care (01) ==
LOC: LAB 08:33
PROVIDERS: ATTEND Internal Medicine
DX: Z51.81 Encounter for therapeutic drug level monitoring (principal); Z79.01 Long term (current) use of anticoagulants

== ENCOUNTER → 2025-03-12 | Outpatient (CLI) | payer MEDICARE ==
[~2025-03-12] MED LIST changes: -NA FERRIC GLUC CMPL/SUCROSE 62.5 MG/5 ML VIAL IV SCH
== END | disposition home or self-care (01) ==
LOC: LAB 09:55
PROVIDERS: ATTEND Internal Medicine
DX: Z51.81 Encounter for therapeutic drug level monitoring (principal); Z79.01 Long term (current) use of anticoagulants

== ENCOUNTER → 2025-04-02 | Outpatient (CLI) | payer MEDICARE | END | disposition home or self-care (01) | LOC: LAB 02:44 | PROVIDERS: ATTEND Internal Medicine | DX: Z51.81 Encounter for therapeutic drug level monitoring (principal); Z79.01 Long term (current) use of anticoagulants ==

== ENCOUNTER → 2025-04-19 | Outpatient (CLI) | payer MEDICARE ==
[2025-04-19 13:59] LABS: BASO # 0.1 10*3/uL (0.0-0.1); BASO % 0.7 % (0.0-1.0); EOS # 0.2 10*3/uL (0.0-0.4); EOS % 2.2 % (1.0-4.0); MEAN CELL VOLUME 85.9 fl (81.0-99.0); MEAN CORPUSCULAR HGB 26.6 pg (27.0-31.0); MEAN PLATELET VOLUME 8.9 fl (9.6-12.3); MONO # 0.4 10*3/uL (0.1-1.0); MONO % 6.3 % (3.0-9.0); NEUT # 4.1 10*3/uL (2.3-7.9); NEUT % 60.1 % (47.0-73.0); PLATELET COUNT AUTOMATED 187 10*3/uL (130-400); RED BLOOD COUNT 4.89 10*6/uL (4.10-5.10); RED CELL DISTRI WIDTH 17.8 % (0-14.5); WHITE BLOOD COUNT 6.9 10*3/uL (4.8-10.8)
== END | disposition home or self-care (01) ==
LOC: LAB 01:10
PROVIDERS: ATTEND Internal Medicine
DX: Z13.0 Encounter for screening for diseases of the blood and blood-forming organs and certain disorders involving the immune mechanism (principal); Z13.1 Encounter for screening for diabetes mellitus; Z51.81 Encounter for therapeutic drug level monitoring; E55.9 Vitamin D deficiency, unspecified; D51.9 Vitamin B12 deficiency anemia, unspecified; Z13.21 Encounter for screening for nutritional disorder; Z13.220 Encounter for screening for lipoid disorders; Z13.228 Encounter for screening for other metabolic disorders; Z13.6 Encounter for screening for cardiovascular disorders; Z13.89 Encounter for screening for other disorder; Z79.01 Long term (current) use of anticoagulants

== ENCOUNTER → 2025-04-29 | Outpatient (CLI) | payer MEDICARE | END | disposition home or self-care (01) | LOC: MAMMO 02:57 | PROVIDERS: ATTEND Internal Medicine | DX: Z12.31 Encounter for screening mammogram for malignant neoplasm of breast (principal); S22.20XA Unspecified fracture of sternum, initial encounter for closed fracture; R92.323 Mammographic fibroglandular density, bilateral breasts; N64.89 Other specified disorders of breast; X58.XXXA Exposure to other specified factors, initial encounter; Y93.89 Activity, other specified; Y92.89 Other specified places as the place of occurrence of the external cause; Y99.8 Other external cause status ==

== ENCOUNTER → 2025-05-08 | Outpatient (CLI) | payer MEDICARE | END | disposition home or self-care (01) | LOC: MAMMO 00:31 | PROVIDERS: ATTEND Internal Medicine | DX: R92.323 Mammographic fibroglandular density, bilateral breasts (principal); R92.8 Other abnormal and inconclusive findings on diagnostic imaging of breast ==

== ENCOUNTER → 2025-05-21 | Outpatient (CLI) | payer MEDICARE | END | disposition home or self-care (01) | LOC: LAB 02:58 | PROVIDERS: ATTEND Internal Medicine | DX: Z51.81 Encounter for therapeutic drug level monitoring (principal); Z79.01 Long term (current) use of anticoagulants ==

== ENCOUNTER → 2025-06-13 | Outpatient (CLI) | payer MEDICARE | END | disposition home or self-care (01) | LOC: LAB 01:09 | PROVIDERS: ATTEND Internal Medicine | DX: Z51.81 Encounter for therapeutic drug level monitoring (principal); Z79.01 Long term (current) use of anticoagulants ==

== ENCOUNTER → 2025-06-27 | Outpatient (CLI) | payer MEDICARE | LOC: LAB 00:10 | PROVIDERS: ATTEND Internal Medicine | DX: Z51.81 Encounter for therapeutic drug level monitoring (principal); Z79.01 Long term (current) use of anticoagulants ==

== ENCOUNTER → 2025-07-30 | Outpatient (CLI) | payer MEDICARE | END | disposition home or self-care (01) | LOC: LAB 14:02 | PROVIDERS: ATTEND Internal Medicine | DX: Z51.81 Encounter for therapeutic drug level monitoring (principal); Z79.01 Long term (current) use of anticoagulants ==

== ENCOUNTER → 2025-08-27 | Outpatient (CLI) | payer MEDICARE | END | disposition home or self-care (01) | LOC: LAB 05:02 | PROVIDERS: ATTEND Internal Medicine | DX: Z51.81 Encounter for therapeutic drug level monitoring (principal); Z79.01 Long term (current) use of anticoagulants ==

== ENCOUNTER → 2025-09-30 | Outpatient (CLI) | payer MEDICARE | END | disposition home or self-care (01) | LOC: LAB 13:22 | PROVIDERS: ATTEND Internal Medicine | DX: Z51.81 Encounter for therapeutic drug level monitoring (principal); Z79.01 Long term (current) use of anticoagulants ==